=== PATIENT | female | born 1985 | race Caucasian/White ===

== ENCOUNTER 2017-11-04 18:19 | Inpatient (IN) | payer BC ==
[2017-11-04] MEDS ORDERED: Nalbuphine 20 MG/1 ML Amp IVPUSH PRN (21:03)
[2017-11-04] MEDS ORDERED: Sodium Chloride 0.9% 10 ML Syringe FLUSH PRN (21:03)
[2017-11-04] MEDS ORDERED: Oxytocin/Lactated Ringers 10 UNIT/1,000 ML BAG IV SCH ×2 (21:15)
[2017-11-04] MEDS: Misoprostol 25 MCG (1/4 of 100 MCG) Tab VAG SCH (21:49)
[2017-11-04] MEDS ORDERED: Acetaminophen 325 MG Tab PO PRN (21:51)
[2017-11-05] MEDS: Lactated Ringers 1,000 ML IV SCH ×5 (00:06→13:17)
[2017-11-05] MEDS ORDERED: Ondansetron 4 MG/2 ML SDV IVPUSH PRN (00:55)
[2017-11-05] MEDS ORDERED: ePHEDrine 50 MG/ML SDV IVPUSH PRN (00:55)
[2017-11-05] MEDS ORDERED: diphenhydrAMINE 50 MG/ML SDV IVPUSH PRN (00:55)
[2017-11-05] MEDS ORDERED: fentaNYL 100 MCG/2 ML SDV EPIDUR PRN (00:55)
--- NOTE | 2017-11-05 01:25 | PCM.PREANE ---
Preanesthetic Assessment - Anesthesia/Transfusion/Family Hx Anesthesia History: Prior Anesthesia Without Reaction Family History of Anesthesia Reaction: No Transfusion History: No Prior Transfusion(s) - Review of Systems General: No Symptoms Pulmonary: No Symptoms Cardiovascular: No Symptoms Gastrointestinal: No Symptoms Neurological: No Symptoms Other: Reports: None - Physical Assessment Pulse: 55 O2 Sat by Pulse Oximetry: 98 Respiratory Rate: 15 Vital Signs: Last Vital Signs Temp 36.8 C 11/04/17 21:03 Pulse Resp 15 11/04/17 21:03 BP 118/71 11/04/17 21:04 Pulse Ox Height: 1.63 m Weight: 100.244 kg ASA Class: 2 Mental Status: Alert & Oriented x3 Airway Class: Mallampati = 1 Dentition: Reports: Normal Dentition Thyro-Mental Finger Breadths: 3 Mouth Opening Finger Breadths: 3 ROM/Head Extension: Full Lungs: Clear to Auscultation, Normal Respiratory Effort Cardiovascular: Regular Rate, Regular Rhythm - Lab Values: Laboratory Last Values WBC 8.17 K/mm3 (3.98-10.04) 11/04/17 21:20 RBC 4.00 M/mm3 (3.98-5.22) 11/04/17 21:20 Hgb 10.3 gm/L (11.2-15.7) L 11/04/17 21:20 Hct 32.4 % (34.1-44.9) L 11/04/17 21:20 MCV 81.0 fl (79.4-94.8) 11/04/17 21:20 MCH 25.8 pg (25.6-32.2) 11/04/17 21:20 MCHC 31.8 g/dl (32.2-35.5) L 11/04/17 21:20 RDW Std Deviation 43.6 fL (36.4-46.3) 11/04/17 21:20 Plt Count 217 K/mm3 (182-369) 11/04/17 21:20 MPV 10.4 fl (9.4-12.3) 11/04/17 21:20 Neut % (Auto) 73.3 % (34.0-71.1) H 11/04/17 21:20 Lymph % (Auto) 19.3 % (19.3-51.7) 11/04/17 21:20 [place] % (Auto) 5.8 % (4.7-12.5) 11/04/17 21:20 Eos % (Auto) 1.0 (0.7-5.8) 11/04/17 21:20 Baso % (Auto) 0.1 % (0.1-1.2) 11/04/17 21:20 Neut # (Auto) 5.99 K/mm3 (1.56-6.13) 11/04/17 21:20 Lymph # (Auto) 1.58 K/mm3 (1.18-3.74) 11/04/17 21:20 [place] # (Auto) 0.47 K/mm3 (0.24-0.36) H 11/04/17 21:20 Eos # (Auto) 0.08 K/mm3 (0.04-0.36) 11/04/17 21:20 Baso # (Auto) 0.01 K/mm3 (0.01-0.08) 11/04/17 21:20 - Allergies Allergies/Adverse Reactions: Allergies Allergy/AdvReac Type Severity Reaction Status Date / Time No Known Allergies Allergy Verified 11/04/17 21:01 - Acknowledgements Anesthesia Type Planned: Epidural Pt an Appropriate Candidate for the Planned Anesthesia: Yes Alternatives and Risks of Anesthesia Discussed w Pt/Guardian: Yes Pt/Guardian Understands and Agrees with Anesthesia Plan: Yes 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: - SUBSTANCE USE Smoking Status *Q: Never Smoker Second Hand Smoke Exposure: No Recreational Drug Use History: No - HOME MEDS Home Medications: Home Meds Prenat Vit Comb.10/Iron/Fa/Dha [Vitafol-OB + DHA] 1 each PO DAILY 11/04/17 [ History] - CURRENT (IN HOUSE) MEDS Current Meds: Current Medications Acetaminophen (Tylenol) 650 mg PO Q4H PRN PRN Reason: Pain Last Admin: 11/04/17 22:20 Dose: 650 mg Diphenhydramine HCl (Benadryl) 25 mg IVPUSH Q6H PRN PRN Reason: Pruritis Ephedrine Sulfate (Ephedrine Sulfate) 5 mg IVPUSH ASDIRECTED PRN PRN Reason: Hypotension Fentanyl (Sublimaze) 100 mcg EPIDUR ONETIME PRN PRN Reason: Pain Lactated Ringer's (Ringers, Lactated) 1,000 mls @ 100 mls/hr IV ASDIRECTED ARLETTE Last Admin: 11/05/17 00:57 Dose: 100 mls/hr Oxytocin/Lactated Ringer's (Pitocin In Lr 10 Units/1,000 Ml) 10 unit in 1,000 mls @ 12 mls/hr IV TITRATE ARLETTE; Protocol Oxytocin/Lactated Ringer's (Pitocin In Lr 10 Units/1,000 Ml) 10 unit in 1,000 mls @ 500 mls/hr IV .CONTINUOUS ARLETTE; Protocol Misoprostol (Cytotec) 25 mcg VAG Q4HR ARLETTE Last Admin: 11/04/17 21:49 Dose: 25 mcg Nalbuphine HCl (Nubain) 10 mg IVPUSH Q2H PRN PRN Reason: Pain (moderate 4-6) Ondansetron HCl (Zofran) 4 mg IVPUSH Q4H PRN PRN Reason: Nausea/Vomiting Ondansetron HCl (Zofran) 4 mg IVPUSH ONETIME PRN PRN Reason: Nausea/Vomiting Sodium Chloride (Saline Flush) 10 ml FLUSH ASDIRECTED PRN PRN Reason: Keep Vein Open
[2017-11-05] MEDS: Bupivacaine/fentaNYL/NS 100 ML Bag EPIDUR SCH ×3 (01:33→15:50)
--- NOTE | 2017-11-05 03:29 | PCM.CONS ---
H&P History of Present Illness - General Date of Service: 11/05/17 Admit Problem/Dx: Admission Diagnosis/Problem Admission Diagnosis/Problem Source of Information: Patient, Old Records, RN Notes Reviewed History Limitations: Reports: No Limitations - History of Present Illness Initial Comments - Free Text/Narative: This is a 31 yo white female [id number], full term , who was admitted in LD department for elective induction. She carries no past medical hx/o and no significant past surgical history. She takes only vitamins for home medication. Patient is currently resting and comfortable in bed. No acute issues reported and has been asymptomatic since admission. Her initial work up in LD shows, a CBC remarkable for hemoglobin of 10.3, hematocrit of 32.4, MCH of 31.8, neutrophils of 73.8, and monocyte count of 0.47. Her EKG shows sinus bradycardia with ventricular bigeminy. No previous EKG for comparison. According to her nurse, patient so far has gotten epidural injection and cytotec since admission. At the time of my visit, the patient denies any complaints of chest pain, shortness of breath, dyspnea, dizziness, lightheadedness, fainting, heart palpitation, or sensation of skipping heart beat. Hospital Medicine was consulted for evaluation of abnormal rhythm and slow pulse rate. - Related Data Allergies/Adverse Reactions: Allergies Allergy/AdvReac Type Severity Reaction Status Date / Time No Known Allergies Allergy Verified 11/04/17 21:01 Home Medications: Home Meds Prenat Vit Comb.10/Iron/Fa/Dha [Vitafol-OB + DHA] 1 each PO DAILY 11/04/17 [ History] Past Medical History [employer] History: Reports: Social & Family History - Family History Family Medical History: Noncontributory - Tobacco Use Smoking Status *Q: Never Smoker Second Hand Smoke Exposure: No - Caffeine Use Caffeine Use: Reports: None - Recreational Drug Use Recreational Drug Use: No H&P Review of Systems - Review of Systems: Review Of Systems: See Below General: Denies: Fever, Chills, Weakness HEENT: Reports: No Symptoms Pulmonary: Denies: Shortness of Breath, Pleuritic Chest Pain Cardiovascular: Reports: Edema. Denies: Chest Pain, Palpitations, Dyspnea on Exertion, Lightheadedness, Syncope, Blood Pressure Problem Gastrointestinal: Denies: Abdominal Pain, Nausea, Vomiting Genitourinary: Reports: Other (pelvic pressure/tightness) Musculoskeletal: Reports: No Symptoms Skin: Denies: Cyanosis, Mottled, Pallor, Diaphoresis, Bruising Psychiatric: Denies: Depression, Anxiety, Agitation, Hallucinations Neurological: Denies: Confusion, Dizziness, Seizure, Syncope, Weakness Hematologic/Lymphatic: Reports: No Symptoms Immunologic: Reports: No Symptoms Exam - Exam Exam: See Below - Vital Signs Vital Signs: Last Vital Signs Temp 36.8 C 11/04/17 21:03 Pulse 55 L 11/05/17 01:24 Resp 15 11/05/17 01:24 BP 118/71 11/04/17 21:04 Pulse Ox 98 11/05/17 01:24 Weight: 100.244 kg - Exam General: Alert, Oriented, Cooperative, Other (tired and exhausted). No: Mild Distress HEENT: Conjunctiva Clear, Hearing Intact, Mucosa Moist & [place], Nares Patent, Normal Nasal Septum, Pupils Equal, Pupils Reactive Neck: Supple, Trachea Midline, Full Range of Motion. No: JVD Lungs: Clear to Auscultation, Normal Respiratory Effort Cardiovascular: Regular Rhythm, Tachycardia (Mild in the low hundreds), Other ( Pulse is slow ) GI/Abdominal Exam: Normal Bowel Sounds, Soft, Non-Tender, Other (enlarged abdomen due to ). No: Guarding, Rigid, Rebound (Female) Exam: Deferred Rectal (Female) Exam: Deferred Back Exam: Normal Inspection, Decreased Range of Motion Extremities: Normal Inspection, Normal Range of Motion, Non-Tender, Normal Capillary Refill, Pedal Edema Peripheral Pulses: 3+: Posterior Tibial (L), Posterior Tibial (R), Dorsalis Pedis (L), Dorsalis Pedis (R) Skin: Warm, Dry, Intact Neuro Extensive - Mental Status: Oriented x3, Normal Cognition, Memory Intact Neuro Extensive - Motor, Sensory, Reflexes: CN II-XII Intact (very limited due to mobility and restriction with current body habitus but otherwise grossly intact), Abnormal Gait (due to ) Psychiatric: Alert, Normal Affect, Normal Mood - Patient Data Lab Results Last 24 hrs: Laboratory Results - last 24 hr 11/04/17 11/05/17 Range/Units 21:20 02:05 WBC 8.17 (3.98-10.04) K/mm3 RBC 4.00 (3.98-5.22) M/mm3 Hgb 10.3 L (11.2-15.7) gm/L Hct 32.4 L (34.1-44.9) % MCV 81.0 (79.4-94.8) fl MCH 25.8 (25.6-32.2) pg MCHC 31.8 L (32.2-35.5) g/dl RDW Std Deviation 43.6 (36.4-46.3) fL Plt Count 217 (182-369) K/mm3 MPV 10.4 (9.4-12.3) fl Neut % (Auto) 73.3 H (34.0-71.1) % Lymph % (Auto) 19.3 (19.3-51.7) % [place] % (Auto) 5.8 (4.7-12.5) % Eos % (Auto) 1.0 (0.7-5.8) Baso % (Auto) 0.1 (0.1-1.2) % Neut # (Auto) 5.99 (1.56-6.13) K/mm3 Lymph # (Auto) 1.58 (1.18-3.74) K/mm3 [place] # (Auto) 0.47 H (0.24-0.36) K/mm3 Eos # (Auto) 0.08 (0.04-0.36) K/mm3 Baso # (Auto) 0.01 (0.01-0.08) K/mm3 Sodium 136 (136-145) mEq/L Potassium 3.6 (3.5-5.1) mEq/L Chloride 103 (98-107) mEq/L Carbon Dioxide 25 (21-32) mEq/L Anion Gap 11.6 (5-15) BUN 10 (7-18) mg/dL Creatinine 0.6 (0.55-1.02) mg/dL Est Cr Clr Drug Dosing 118.39 mL/min Estimated GFR (MDRD) > 60 (>60) mL/min BUN/Creatinine Ratio 16.7 (14-18) Glucose 91 (74-106) mg/dL Calcium 8.5 (8.5-10.1) mg/dL Magnesium 1.4 L (1.8-2.4) mg/dl Result Diagrams: 11/04/17 21:20 11/05/17 02:05 Consult PN Assessment/Plan POD#: 0 Procedures: Procedures ASSAY THYROID STIM HORMONE (09/15/17) COMPLETE CBC W/AUTO DIFF WBC (09/15/17) GLUCOSE TEST (08/19/17) OB US >/= 14 WKS SNGL FETUS (06/22/17) OB US FOLLOW-UP PER FETUS (07/18/17) ROUTINE VENIPUNCTURE (09/15/17) STREP B DNA AMP PROBE (10/19/17) URINALYSIS AUTO W/O SCOPE (07/20/17) URINALYSIS AUTO W/SCOPE (05/30/17) Problem List Initiated/Reviewed/Updated: Yes My Orders Last 24 Hours: My Active Orders 11/05/17 03:00 T4 FREE [CHEM] Routine TSH [CHEM] Routine 11/05/17 03:15 Magnesium Rep Pharmacy to Dose [Pharmacy to Dose - Magnesium Replacement] 1 dose .XX ASDIRECTED Potassium Rep Pharmacy to Dose [Pharmacy to Dose - Potassium Replacement] 1 dose .XX ASDIRECTED Plan: Assessment: Asymptomatic Bradycardia with Ventricular Bigeminy Full-Term Plan: The patient is a healthy young 31 yo female with no hx/o abnormal cardiac rhythm or congenital heart disease. She has been asymptomatic since admission but with considerably low pulse rate in the 30s-40s captured on LD monitor and with an ekg of sinus bradycardia with ventricular bigeminy. From the hospitalist standpoint, we recommend checking her electrolytes, serial ekgs, thyroid panel, telemetry and immediate delivery of the baby. No cardiac medications needed at this time. Our team, also consulted with [facility] on-call cardiology in [place], Dr. Velasquez for further input. After discussing the case with him, he recommend to closely monitor her electrolytes, ekg after after delivery, telemetry and most importantly to deliver the baby soon. On behalf of the hospitalist team, thank you Dr. Weeks for the opportunity to participate in the management of this patient. We will follow the patient along with you. Requesting Provider: Dr. Weeks Date Consult Requested: 11/05/17 Reason for Consult: Low Pulse Rate Patient History Reviewed: Yes Admission H&P Reviewed: Yes Consult Result/Summary:: Asymptomatic Bradycardia with Ventricular Bigeminy Notified Requestor: Yes Time Spent (in minutes): 75
[2017-11-05] MEDS: Magnesium Sulfate/Water 50 ML IV SCH ×2 (03:58→07:20)
[2017-11-05] MEDS: Potassium Chloride 20 MEQ Tab.ER PO SCH ×2 (04:21→08:42)
[2017-11-05] MEDS ORDERED: Nalbuphine 20 MG/ML 1 ML Syringe IVPUSH PRN (08:09)
[2017-11-05] MEDS ORDERED: Ondansetron 4 MG/2 ML SDV ONE (08:15)
[2017-11-05] MEDS ORDERED: ceFAZolin 1 GM Vial ONE (08:15)
[2017-11-05] MEDS ORDERED: Oxytocin 10 Units/1 ML SDV ONE (08:15)
[2017-11-05] MEDS ORDERED: Lidocaine 2% with EPINEPHrine 1:200,000 20 ML SDV ONE (08:15)
[2017-11-05] MEDS ORDERED: Morphine PF 10 MG/10 ML SDV ONE (08:15)
[2017-11-05] MEDS ORDERED: Sodium Bicarbonate 8.4% 50 MEQ/50 ML SDV ONE (08:15)
[2017-11-05] MEDS ORDERED: Lactated Ringers 2,000 ML ONE (08:15)
[2017-11-05] MEDS ORDERED: Ketorolac 30 MG/ML SDV ONE (08:15)
[2017-11-05] MEDS: Misoprostol 25 MCG (1/4 of 100 MCG) Tab VAG SCH ×2 (08:24→08:34)
[2017-11-05] MEDS: Ondansetron 4 MG/2 ML SDV IVPUSH PRN ×2 (09:44→17:30)
[2017-11-05] MEDS ORDERED: Bupivacaine 0.25% 10 ML SDV ONE (10:00)
--- NOTE | 2017-11-05 10:01 | PCM.SN ---
- Free Text/Narrative Note: Consultation request to hospitalist 31-year-old to 3 YOUSUF 11/11/17. Patient presented to labor and delivery on for induction of labor. During the night she developed irregular pulse ranging from 20-60-70 with irregular heartbeat. I would appreciate your evaluation and recommendations.
--- NOTE | 2017-11-05 10:10 | PCM.LDHP ---
L&D History of Present Illness - General Date of Service: 11/05/17 Admit Problem/Dx: Admission Diagnosis/Problem Admission Diagnosis/Problem Source of Information: Patient History Limitations: Reports: No Limitations - History of Present Illness Introduction:: 31-year-old 0-3 YOUSUF 11/11/2017 estimated gestational age on 11/04/1838 weeks 0 days. Patient presented to labor and delivery for induction of labor. Her group B strep is negative. See labs for her lab work results. Patient during the night developed irregular heartbeat with pulse ranging from 20-60-70 and 1 time 90 with nausea and vomiting. Consult request place for hospitalist. His evaluation revealed suspected ventricular bigeminy. Patient was given magnesium sulfate IV and potassium chloride by mouth her symptoms have improved. She was feeling faint and dizzy at the time of the onset. No past history of same. Plan delivery. During the night when patient was admitted she was cephalic presentation in the yard jacker hours converted to an oblique lie and subsequently now by sonogram on pelvic exam return to cephalic presentation with a hand beside the head. 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: Social & Family History - Family History Family Medical History: Noncontributory - Tobacco Use Smoking Status *Q: Never Smoker Second Hand Smoke Exposure: No - Caffeine Use Caffeine Use: Reports: None - Recreational Drug Use Recreational Drug Use: No H&P Review of Systems - Review of Systems: Review Of Systems: See Below General: Reports: No Symptoms HEENT: Reports: No Symptoms Pulmonary: Reports: No Symptoms Cardiovascular: Reports: Lightheadedness, Other (Dizziness and feeling faint.) Gastrointestinal: Reports: No Symptoms Genitourinary: Reports: No Symptoms Musculoskeletal: Reports: No Symptoms Skin: Reports: No Symptoms Psychiatric: Reports: No Symptoms Neurological: Reports: No Symptoms Hematologic/Lymphatic: Reports: No Symptoms Immunologic: Reports: No Symptoms L&D Exam - Exam Exam: See Below - Vital Signs Vital Signs: Last Vital Signs Temp 98.2 F 11/04/17 21:03 Pulse 55 L 11/05/17 01:24 Resp 15 11/05/17 01:24 BP 118/71 11/04/17 21:04 Pulse Ox 98 11/05/17 01:24 Weight: 221 lb - OB Specific Fundal Height In cm: 39 Contraction Intensity: Mild Movement: Active Heart Tones: Present Heart Tones per Min: 135 Heart Rate (FHR) Variability: Moderate (6-25 bmp) Presentation: Vertex - Mc Score Mc Score Cervix Position: Posterior Mc Score Consistency: Soft Mc Score Effacement: 51-70% Mc Score Dilation: 1-2 cm Mc Score 's Station: -3 Mc Score Total: 5 - Exam General: Alert, Oriented HEENT: PERRLA, Conjunctiva Clear, EACs Clear, EOMI, Hearing Intact, Mucosa Moist & [place], Nares Patent, Normal Nasal Septum, Posterior Pharynx Clear, TMs Clear Neck: Supple, Trachea Midline Lungs: Clear to Auscultation, Normal Respiratory Effort Cardiovascular: Irregular Rhythm, Bradycardia GI/Abdominal Exam: Normal Bowel Sounds, Soft, Non-Tender Genitourinary: Normal external exam, Normal bimanual exam, Normal speculum exam Extremities: Normal Inspection, Normal Range of Motion, Non-Tender, No Pedal Edema, Normal Capillary Refill Skin: Warm, Dry, Intact Neurological: Cranial Nerves Intact, Reflexes Equal Bilateral Psychiatric: Alert, Normal Affect, Normal Mood - Patient Data Lab Results Last 24 hrs: Laboratory Results - last 24 hr 11/04/17 11/05/17 11/05/17 Range/Units 21:20 02:05 02:05 WBC 8.17 (3.98-10.04) K/mm3 RBC 4.00 (3.98-5.22) M/mm3 Hgb 10.3 L (11.2-15.7) gm/L Hct 32.4 L (34.1-44.9) % MCV 81.0 (79.4-94.8) fl MCH 25.8 (25.6-32.2) pg MCHC 31.8 L (32.2-35.5) g/dl RDW Std Deviation 43.6 (36.4-46.3) fL Plt Count 217 (182-369) K/mm3 MPV 10.4 (9.4-12.3) fl Neut % (Auto) 73.3 H (34.0-71.1) % Lymph % (Auto) 19.3 (19.3-51.7) % [place] % (Auto) 5.8 (4.7-12.5) % Eos % (Auto) 1.0 (0.7-5.8) Baso % (Auto) 0.1 (0.1-1.2) % Neut # (Auto) 5.99 (1.56-6.13) K/mm3 Lymph # (Auto) 1.58 (1.18-3.74) K/mm3 [place] # (Auto) 0.47 H (0.24-0.36) K/mm3 Eos # (Auto) 0.08 (0.04-0.36) K/mm3 Baso # (Auto) 0.01 (0.01-0.08) K/mm3 Sodium 136 (136-145) mEq/L Potassium 3.6 (3.5-5.1) mEq/L Chloride 103 (98-107) mEq/L Carbon Dioxide 25 (21-32) mEq/L Anion Gap 11.6 (5-15) BUN 10 (7-18) mg/dL Creatinine 0.6 (0.55-1.02) mg/dL Est Cr Clr Drug Dosing 118.39 mL/min Estimated GFR (MDRD) > 60 (>60) mL/min BUN/Creatinine Ratio 16.7 (14-18) Glucose 91 (74-106) mg/dL Calcium 8.5 (8.5-10.1) mg/dL Magnesium 1.4 L (1.8-2.4) mg/dl Free T4 0.98 (0.76-1.46) ng/dL TSH 3rd Generation 2.778 (0.358-3.74) uIU/mL Result Diagrams: 11/04/17 21:20 11/05/17 02:05 - Problem List (1) 40 weeks gestation of SNOMED Code(s): 64270894 ICD Code: Z3A.40 - 40 WEEKS GESTATION OF Status: Acute Current Visit: Yes (2) Ventricular bigeminy SNOMED Code(s): 42490981 ICD Code: I49.9 - CARDIAC ARRHYTHMIA, UNSPECIFIED Status: Acute Current Visit: Yes Problem List Initiated/Reviewed/Updated: No Orders Last 24hrs: Active Orders 24 hr Category Date Time Status Patient Status [ADT] Routine ADT 11/04/17 21:03 Active Activity as Tolerated [RC] PFP Care 11/04/17 21:03 Active Cardiac Monitoring [RC] . DIRECTED Care 11/05/17 01:54 Active Communication Order [RC] ASDIRECTED Care 11/04/17 21:03 Active Communication Order [RC] ROUTINE Care 11/05/17 05:08 Active EKG 12 Lead [EKG Documentation Completion] [RC] ROUTINE Care 11/05/17 08:00 Active EKG Documentation Completion [RC] ASDIRECTED Care 11/05/17 01:41 Active Heart Tones [RC] ASDIRECTED Care 11/04/17 21:04 Active Notify Provider Consults [RC] ASDIRECTED Care 11/05/17 02:11 Active Notify Provider [RC] ASDIRECTED Care 11/05/17 00:54 Active Notify Provider [RC] PFP Care 11/04/17 21:03 Active Notify Provider [RC] PRN Care 11/04/17 21:03 Active Peripheral IV Care [RC] . DIRECTED Care 11/04/17 21:04 Active Pump Management, Intrathecal [RC] ASDIRECTED Care 11/04/17 21:05 Active Urinary Catheter Assessment [RC] ASDIRECTED Care 11/04/17 21:03 Active Vital Signs [RC] PER UNIT ROUTINE Care 11/04/17 21:03 Active Consult to Physician [CONS] Stat Cons 11/05/17 02:06 Active Acetaminophen [Tylenol] Med 11/04/17 21:51 Active 650 mg PO Q4H PRN Bupivacaine/fentaNYL/NS [fentaNYL/Bupivacaine/NS 2 MCG- Med 11/05/17 01:30 Active 0.125% 100 ML] 100 ml EPIDUR ASDIRECTED Lactated Ringers [Ringers, Lactated] 1,000 ml Med 11/04/17 21:15 Active IV ASDIRECTED Magnesium Rep Pharmacy to Dose [Pharmacy to Dose - Med 11/05/17 03:15 Active Magnesium Replacement] 0 dose .XX ASDIRECTED PRN Misoprostol [Cytotec] Med 11/04/17 21:11 Active 25 mcg VAG Q4HR Nalbuphine [Nubain] Med 11/05/17 08:09 Active 10 mg IVPUSH Q2H PRN Ondansetron [Zofran] Med 11/05/17 00:55 Active 4 mg IVPUSH ONETIME PRN Ondansetron [Zofran] Med 11/04/17 21:03 Active 4 mg IVPUSH Q4H PRN Oxytocin/Lactated Ringers [Pitocin in LR 10 Units/1,000 Med 11/04/17 21:15 Active ML] 10 unit in 1,000 ml IV .CONTINUOUS Oxytocin/Lactated Ringers [Pitocin in LR 10 Units/1,000 Med 11/04/17 21:15 Active ML] 10 unit in 1,000 ml IV TITRATE Potassium Rep Pharmacy to Dose [Pharmacy to Dose - Med 11/05/17 03:15 Active Potassium Replacement] 0 dose .XX ASDIRECTED PRN Sodium Chloride 0.9% [Saline Flush] Med 11/04/17 21:03 Active 10 ml FLUSH ASDIRECTED PRN diphenhydrAMINE [Benadryl] Med 11/05/17 00:55 Active 25 mg IVPUSH Q6H PRN ePHEDrine [ePHEDrine Sulfate] Med 11/05/17 00:55 Active 5 mg IVPUSH ASDIRECTED PRN fentaNYL [Sublimaze] Med 11/05/17 00:55 Active 100 mcg EPIDUR ONETIME PRN Electronic Heart Tones Ext w TOCO [WOMSER] Oth 11/04/17 21:03 Ordered Routine Electronic Heart Tones Internal [WOMSER] Per Unit Ot 11/04/17 21:03 Ordered Routine Peripheral IV Insertion Adult [OM.PC] Routine Oth 11/04/17 21:03 Ordered Resuscitation Status Routine Resus Stat 11/04/17 21:03 Ordered EKG 12 Lead [EK] Routine Ther 11/05/17 01:40 Ordered Medication Orders Acetaminophen (Tylenol) 650 mg PO Q4H PRN PRN Reason: Pain Last Admin: 11/04/17 22:20 Dose: 650 mg Diphenhydramine HCl (Benadryl) 25 mg IVPUSH Q6H PRN PRN Reason: Pruritis Ephedrine Sulfate (Ephedrine Sulfate) 5 mg IVPUSH ASDIRECTED PRN PRN Reason: Hypotension Fentanyl (Sublimaze) 100 mcg EPIDUR ONETIME PRN PRN Reason: Pain Last Admin: 11/05/17 01:25 Dose: 100 mcg Fentanyl/Bupivacaine HCl (Fentanyl/Bupivacaine/Ns 2 Mcg-0.125% 100 Ml) 100 ml EPIDUR ASDIRECTED ARLETTE Last Admin: 11/05/17 09:44 Dose: 100 ml Admin: 11/05/17 01:33 Dose: 100 ml Lactated Ringer's (Ringers, Lactated) 1,000 mls @ 100 mls/hr IV ASDIRECTED ARLETTE Last Admin: 11/05/17 04:58 Dose: 100 mls/hr Infusion: 11/05/17 04:58 Dose: 100 mls/hr Admin: 11/05/17 03:53 Dose: 100 mls/hr Infusion: 11/05/17 03:53 Dose: 100 mls/hr Admin: 11/05/17 00:57 Dose: 100 mls/hr Infusion: 11/05/17 00:57 Dose: 100 mls/hr Admin: 11/05/17 00:06 Dose: 100 mls/hr Oxytocin/Lactated Ringer's (Pitocin In Lr 10 Units/1,000 Ml) 10 unit in 1,000 mls @ 12 mls/hr IV TITRATE ARLETTE; Protocol Last Titration: 11/05/17 09:43 Dose: 4 munits/min, 24 mls/hr Titration: 11/05/17 08:27 Dose: 2 munits/min, 12 mls/hr Titration: 11/05/17 07:27 Dose: 0 munits/min, 0 mls/hr Admin: 11/05/17 04:44 Dose: 2 munits/min, 12 mls/hr Oxytocin/Lactated Ringer's (Pitocin In Lr 10 Units/1,000 Ml) 10 unit in 1,000 mls @ 500 mls/hr IV .CONTINUOUS ARLETTE; Protocol Magnesium Sulfate (Pharmacy To Dose - Magnesium Replacement) 0 dose .XX ASDIRECTED PRN PRN Reason: RX TO WATCH MAG LEVELS Misoprostol (Cytotec) 25 mcg VAG Q4HR ARLETTE Last Admin: 11/05/17 08:34 Dose: Not Given Admin: 11/05/17 08:24 Dose: Not Given Admin: 11/05/17 08:24 Dose: Not Given Admin: 11/04/17 21:49 Dose: 25 mcg Nalbuphine HCl (Nubain) 10 mg IVPUSH Q2H PRN PRN Reason: Pain (moderate 4-6) Ondansetron HCl (Zofran) 4 mg IVPUSH Q4H PRN PRN Reason: Nausea/Vomiting Last Admin: 11/05/17 09:44 Dose: 4 mg Ondansetron HCl (Zofran) 4 mg IVPUSH ONETIME PRN PRN Reason: Nausea/Vomiting Potassium Chloride (Pharmacy To Dose - Potassium Replacement) 0 dose .XX ASDIRECTED PRN PRN Reason: RX TO WATCH K LEVELS Sodium Chloride (Saline Flush) 10 ml FLUSH ASDIRECTED PRN PRN Reason: Keep Vein Open Assessment/Plan Comment:: Exam at 0 8:30 are confirmed cephalic by ultrasound at bedside and pelvic examination. Cervix 3 cm dilated 70% effaced posterior soft -3 vertex presentation. Restart Pitocin.
--- NOTE | 2017-11-05 11:05 | PCM.SN ---
- Free Text/Narrative Note: Pitocin has been restarted. Cervix unchanged. Still vertex. Cat IFHR
--- NOTE | 2017-11-05 17:19 | PCM.SN ---
- Free Text/Narrative Note: 11/05/2017 1715 hrs Cervix 5 cm, 80%, soft, mid-position, vertex-1. Cat I FHR. Good relief from epidural.
--- NOTE | 2017-11-05 17:45 | PCM.SN ---
- Free Text/Narrative Note: Cervix 6 cm,100 %, soft, anterior, vertex-1 cat I FHR.
[2017-11-05] MEDS ORDERED: Misoprostol 200 MCG Tab ONE (18:32)
--- NOTE | 2017-11-05 18:44 | PCM.DEL ---
L & D Note - General Info Date of Service: 11/05/17 Mother's Due Date: 11/11/17 - Delivery Note Labor: Spontaneous, Augmented by ARM, Augmented by Oxytocin Delivery Outcome: Livebirth (Male liveborn Tuesday11/05/17 at 1827 hrs. weight pending Apgars 8/9 TARIK no nuchal cord) Infant Delivery Method: Spontaneous Vaginal Delivery-Single Infant Delivery Mode: Spontaneous Presentation: Left Occiput Anterior (TARIK) Nuchal Cord: None Prep: Povidone-Iodine (Betadine Anesthesia Type: Epidural Episiotomy Type: None Laceration: 1st Degree (Midline first-degree sutured with one [id number] suture 3-0 Monocryl) Placenta: Intact, Spontaneous (Delivered at 1830 hrs. on 11/05/17Tuesday intact examined discarded) Cord: 3 Vessels Estimated Blood Loss: 750 (Cytotec 200 g 2 1 each cheek) Resuscitation Needed: No [place]: Suctioned, Bulb Syringe, Stimulated, Warmed, [place] Used, Warmer Used Provider: Rohith Weeks Score 1 min: 8 Score 5 min: 9 - General Info Date of Service: 11/05/17 Functional Status: Reports: Pain Controlled - Review of Systems General: Reports: No Symptoms HEENT: Reports: No Symptoms Pulmonary: Reports: No Symptoms Cardiovascular: Reports: No Symptoms Gastrointestinal: Reports: No Symptoms Genitourinary: Reports: No Symptoms Musculoskeletal: Reports: No Symptoms Skin: Reports: No Symptoms Neurological: Reports: No Symptoms Psychiatric: Reports: No Symptoms - Patient Data Vitals - Most Recent: Last Vital Signs Temp 98.2 F 11/04/17 21:03 Pulse 55 L 11/05/17 01:24 Resp 15 11/05/17 01:24 BP 118/71 11/04/17 21:04 Pulse Ox 98 11/05/17 01:24 Weight - Most Recent: 221 lb I&O - Last 24 Hours: Intake & Output 11/05/17 11/05/17 11/05/17 06:59 14:59 22:59 Intake Total 4100 Balance 4100 Lab Results Last 24 Hours: Laboratory Results - last 24 hr 11/04/17 11/05/17 11/05/17 Range/Units 21:20 02:05 02:05 WBC 8.17 (3.98-10.04) K/mm3 RBC 4.00 (3.98-5.22) M/mm3 Hgb 10.3 L (11.2-15.7) gm/L Hct 32.4 L (34.1-44.9) % MCV 81.0 (79.4-94.8) fl MCH 25.8 (25.6-32.2) pg MCHC 31.8 L (32.2-35.5) g/dl RDW Std Deviation 43.6 (36.4-46.3) fL Plt Count 217 (182-369) K/mm3 MPV 10.4 (9.4-12.3) fl Neut % (Auto) 73.3 H (34.0-71.1) % Lymph % (Auto) 19.3 (19.3-51.7) % [place] % (Auto) 5.8 (4.7-12.5) % Eos % (Auto) 1.0 (0.7-5.8) Baso % (Auto) 0.1 (0.1-1.2) % Neut # (Auto) 5.99 (1.56-6.13) K/mm3 Lymph # (Auto) 1.58 (1.18-3.74) K/mm3 [place] # (Auto) 0.47 H (0.24-0.36) K/mm3 Eos # (Auto) 0.08 (0.04-0.36) K/mm3 Baso # (Auto) 0.01 (0.01-0.08) K/mm3 Sodium 136 (136-145) mEq/L Potassium 3.6 (3.5-5.1) mEq/L Chloride 103 (98-107) mEq/L Carbon Dioxide 25 (21-32) mEq/L Anion Gap 11.6 (5-15) BUN 10 (7-18) mg/dL Creatinine 0.6 (0.55-1.02) mg/dL Est Cr Clr Drug Dosing 118.39 mL/min Estimated GFR (MDRD) > 60 (>60) mL/min BUN/Creatinine Ratio 16.7 (14-18) Glucose 91 (74-106) mg/dL Calcium 8.5 (8.5-10.1) mg/dL Magnesium 1.4 L (1.8-2.4) mg/dl Free T4 0.98 (0.76-1.46) ng/dL TSH 3rd Generation 2.778 (0.358-3.74) uIU/mL Med Orders - Current: Current Medications Acetaminophen (Tylenol) 650 mg PO Q4H PRN PRN Reason: Pain Last Admin: 11/04/17 22:20 Dose: 650 mg Diphenhydramine HCl (Benadryl) 25 mg IVPUSH Q6H PRN PRN Reason: Pruritis Ephedrine Sulfate (Ephedrine Sulfate) 5 mg IVPUSH ASDIRECTED PRN PRN Reason: Hypotension Fentanyl (Sublimaze) 100 mcg EPIDUR ONETIME PRN PRN Reason: Pain Last Admin: 11/05/17 01:25 Dose: 100 mcg Fentanyl/Bupivacaine HCl (Fentanyl/Bupivacaine/Ns 2 Mcg-0.125% 100 Ml) 100 ml EPIDUR ASDIRECTED ARLETTE Last Admin: 11/05/17 15:50 Dose: 100 ml Lactated Ringer's (Ringers, Lactated) 1,000 mls @ 100 mls/hr IV ASDIRECTED ARLETTE Last Admin: 11/05/17 13:17 Dose: 100 mls/hr Oxytocin/Lactated Ringer's (Pitocin In Lr 10 Units/1,000 Ml) 10 unit in 1,000 mls @ 12 mls/hr IV TITRATE ARLETTE; Protocol Last Titration: 11/05/17 14:05 Dose: 8 munits/min, 48 mls/hr Oxytocin/Lactated Ringer's (Pitocin In Lr 10 Units/1,000 Ml) 10 unit in 1,000 mls @ 500 mls/hr IV .CONTINUOUS ARLETTE; Protocol Magnesium Sulfate (Pharmacy To Dose - Magnesium Replacement) 0 dose .XX ASDIRECTED PRN PRN Reason: RX TO WATCH MAG LEVELS Nalbuphine HCl (Nubain) 10 mg IVPUSH Q2H PRN PRN Reason: Pain (moderate 4-6) Ondansetron HCl (Zofran) 4 mg IVPUSH Q4H PRN PRN Reason: Nausea/Vomiting Last Admin: 11/05/17 17:30 Dose: 4 mg Ondansetron HCl (Zofran) 4 mg IVPUSH ONETIME PRN PRN Reason: Nausea/Vomiting Potassium Chloride (Pharmacy To Dose - Potassium Replacement) 0 dose .XX ASDIRECTED PRN PRN Reason: RX TO WATCH K LEVELS Sodium Chloride (Saline Flush) 10 ml FLUSH ASDIRECTED PRN PRN Reason: Keep Vein Open Discontinued Medications Cefazolin Sodium (Ancef) Confirm Administered Dose 2 gm .ROUTE .STK-MED ONE Stop: 11/05/17 08:16 Magnesium Sulfate (Magnesium Sulfate 2 Gm In Water 50 Ml) 50 mls @ 25 mls/hr IV Q2H [facility] Stop: 11/05/17 07:29 Last Admin: 11/05/17 07:20 Dose: 25 mls/hr Lactated Ringer's (Ringers, Lactated) Confirm Administered Dose 2,000 mls @ as directed .ROUTE .STK-MED ONE Stop: 11/05/17 08:16 Ketorolac Tromethamine (Toradol) Confirm Administered Dose 30 mg .ROUTE .STK- MED ONE Stop: 11/05/17 08:16 Lidocaine/Epinephrine (Xylocaine-Mpf 2%-Epi 1:200,000) Confirm Administered Dose 20 ml .ROUTE .STK-MED ONE Stop: 11/05/17 08:16 Misoprostol (Cytotec) 25 mcg VAG Q4HR [facility] Last Admin: 11/05/17 08:34 Dose: Not Given Misoprostol (Cytotec) Confirm Administered Dose 400 mcg .ROUTE .STK-MED ONE Stop: 11/05/17 18:33 Morphine Sulfate (Duramorph Pf) Confirm Administered Dose 10 mg .ROUTE .STK-MED ONE Stop: 11/05/17 08:16 Nalbuphine HCl (Nubain) 10 mg IVPUSH Q2H PRN PRN Reason: Pain (moderate 4-6) Ondansetron HCl (Zofran) Confirm Administered Dose 4 mg .ROUTE .STK-MED ONE Stop: 11/05/17 08:16 Oxytocin (Pitocin) Confirm Administered Dose 20 unit .ROUTE .STK-MED ONE Stop: 11/05/17 08:16 Potassium Chloride (Klor-Con M20) 40 meq PO Q4H [facility] Stop: 11/05/17 08:01 Last Admin: 11/05/17 08:42 Dose: 40 meq Sodium Bicarbonate (Sodium Bicarbonate 8.4%) Confirm Administered Dose 50 meq .ROUTE .STK-MED ONE Stop: 11/05/17 08:16 - Exam (Female) Exam: Other (750 mL estimated blood loss at delivery some uterine atony initially resolved with massage, Pitocin, Cytotec 200 g 2.1 in each cheek) - Problem List & Annotations (1) 40 weeks gestation of SNOMED Code(s): 41191920 Code(s): Z3A.40 - 40 WEEKS GESTATION OF Status: Acute Current Visit: Yes (2) Ventricular bigeminy SNOMED Code(s): 04451255 Code(s): I49.9 - CARDIAC ARRHYTHMIA, UNSPECIFIED Status: Acute Current Visit: Yes (3) First degree laceration of perineum, delivered, current hospitalization SNOMED Code(s): 825281150 Code(s): O70.0 - FIRST DEGREE PERINEAL LACERATION DURING DELIVERY Status: Acute Current Visit: Yes (4) Uterine atony, , current hospitalization SNOMED Code(s): 7743346 Code(s): O75.89 - OTHER SPECIFIED COMPLICATIONS OF LABOR AND DELIVERY Status: Acute Current Visit: Yes - Problem List Review Problem List Initiated/Reviewed/Updated: No - My Orders Last 24 Hours: My Active Orders 11/04/17 21:03 Patient Status [ADT] Routine Activity as Tolerated [RC] PFP Communication Order [RC] ASDIRECTED Notify Provider [RC] PFP Notify Provider [RC] PRN Urinary Catheter Assessment [RC] ASDIRECTED Vital Signs [RC] PER UNIT ROUTINE Ondansetron [Zofran] 4 mg IVPUSH Q4H PRN Sodium Chloride 0.9% [Saline Flush] 10 ml FLUSH ASDIRECTED PRN Electronic Heart Tones Ext w TOCO [WOMSER] Routine Electronic Heart Tones Internal [WOMSER] Per Unit Routine Peripheral IV Insertion Adult [OM.PC] Routine Resuscitation Status Routine 11/04/17 21:04 Heart Tones [RC] ASDIRECTED Peripheral IV Care [RC] . DIRECTED 11/04/17 21:05 Pump Management, Intrathecal [RC] ASDIRECTED 11/04/17 21:15 Lactated Ringers [Ringers, Lactated] 1,000 ml IV ASDIRECTED Oxytocin/Lactated Ringers [Pitocin in LR 10 Units/1,000 ML] 10 unit in 1,000 ml IV .CONTINUOUS Oxytocin/Lactated Ringers [Pitocin in LR 10 Units/1,000 ML] 10 unit in 1,000 ml IV TITRATE 11/04/17 21:51 Acetaminophen [Tylenol] 650 mg PO Q4H PRN 11/05/17 01:40 EKG 12 Lead [EK] Routine 11/05/17 01:41 EKG Documentation Completion [RC] ASDIRECTED 11/05/17 01:54 Cardiac Monitoring [RC] . DIRECTED 11/05/17 02:06 Consult to Physician [CONS] Stat 11/05/17 02:11 Notify Provider Consults [RC] ASDIRECTED 11/05/17 08:09 Nalbuphine [Nubain] 10 mg IVPUSH Q2H PRN - Plan Plan:: Exam at 0 8:30 are confirmed cephalic by ultrasound at bedside and pelvic examination. Cervix 3 cm dilated 70% effaced posterior soft -3 vertex presentation. Restart Pitocin.
[2017-11-05] MEDS ORDERED: Carboprost Tromethamine 250 MCG/1 ML Amp ONE (19:12)
[2017-11-05] MEDS ORDERED: Atropine/Diphenoxylate 0.025-2.5 MG Tab PO ONE (19:13)
[2017-11-05] MEDS ORDERED: Witch Hazel Medicated Pads 100/Jar TOP PRN (19:14)
[2017-11-05] MEDS ORDERED: Benzocaine/Menthol 20%-0.5% Spray 56 GM Canister TOP PRN (19:14)
[2017-11-05] MEDS ORDERED: Lanolin 100% Cream 7 GM Tube TOP PRN (19:14)
[2017-11-05] MEDS ORDERED: Docusate Sodium 100 MG Cap PO PRN (19:14)
[2017-11-05] MEDS ORDERED: Misoprostol 200 MCG Tab PO ONE (19:14)
[2017-11-05] MEDS ORDERED: Acetaminophen 325 MG Tab PO PRN (19:14)
[2017-11-05] MEDS: Ibuprofen 600 MG Tab PO PRN (21:50)
[2017-11-06] MEDS: Ibuprofen 600 MG Tab PO PRN ×3 (04:29→20:18)
[2017-11-06] MEDS: Prenatal Multivitamin with Calcium/Folic Acid/Iron Tab PO SCH (09:07)
[2017-11-06] MEDS ORDERED: Magnesium Sulfate/Water 4 GM in Premix Bag 1 BAG IV ONE (09:34)
[2017-11-06] MEDS ORDERED: Potassium Chloride 20 MEQ Tab.ER PO ONE (09:35)
--- NOTE | 2017-11-06 09:38 | PCM.CONSN ---
- General Info Date of Service: 11/06/17 Admission Dx/Problem (Free Text): Hospitalist overview: This is a 31 yo white female F2N3-5-6-3, full term , who was admitted in LD department for elective induction. She carries no past medical hx/o and no significant past surgical history. She takes only vitamins for home medication. Patient is currently resting and comfortable in bed. No acute issues reported and has been asymptomatic since admission. Her initial work up in LD shows, a CBC remarkable for hemoglobin of 10.3, hematocrit of 32.4, MCH of 31.8, neutrophils of 73.8, and monocyte count of 0.47. Her EKG shows sinus bradycardia with ventricular bigeminy. No previous EKG for comparison. According to her nurse, patient so far has gotten epidural injection and cytotec since admission. At the time of my visit, the patient denies any complaints of chest pain, shortness of breath, dyspnea, dizziness, lightheadedness, fainting, heart palpitation, or sensation of skipping heart beat. Hospital Medicine was consulted for evaluation of abnormal rhythm and slow pulse rate. Functional Status: Reports: Tolerating Diet, Ambulating, Urinating - Review of Systems General: Reports: No Symptoms HEENT: Reports: No Symptoms Pulmonary: Reports: No Symptoms Cardiovascular: Reports: No Symptoms Gastrointestinal: Reports: No Symptoms Genitourinary: Reports: No Symptoms Musculoskeletal: Reports: No Symptoms Skin: Reports: No Symptoms Neurological: Reports: No Symptoms Psychiatric: Reports: No Symptoms - Patient Data Vitals - Most Recent: Last Vital Signs Temp 36.4 C 11/06/17 03:00 Pulse 80 11/06/17 03:00 Resp 17 11/06/17 03:00 BP 118/80 11/06/17 03:00 Pulse Ox 97 11/06/17 03:00 Weight - Most Recent: 100.244 kg I&O - Last 24 Hours: Intake & Output 11/05/17 11/06/17 11/06/17 22:59 06:59 14:59 Intake Total 5100 1050 Output Total 1900 Balance 3200 1050 Lab Results Last 24 Hours: Laboratory Results - last 24 hr 11/06/17 11/06/17 Range/Units 06:16 06:16 WBC 7.38 (3.98-10.04) K/mm3 RBC 3.61 L (3.98-5.22) M/mm3 Hgb 9.2 L (11.2-15.7) gm/L Hct 29.6 L (34.1-44.9) % MCV 82.0 (79.4-94.8) fl MCH 25.5 L (25.6-32.2) pg MCHC 31.1 L (32.2-35.5) g/dl RDW Std Deviation 44.0 (36.4-46.3) fL Plt Count 171 L (182-369) K/mm3 MPV 10.9 (9.4-12.3) fl Neut % (Auto) 79.2 H (34.0-71.1) % Lymph % (Auto) 13.8 L (19.3-51.7) % [place] % (Auto) 5.8 (4.7-12.5) % Eos % (Auto) 0.8 (0.7-5.8) Baso % (Auto) 0.1 (0.1-1.2) % Neut # (Auto) 5.84 (1.56-6.13) K/mm3 Lymph # (Auto) 1.02 L (1.18-3.74) K/mm3 [place] # (Auto) 0.43 H (0.24-0.36) K/mm3 Eos # (Auto) 0.06 (0.04-0.36) K/mm3 Baso # (Auto) 0.01 (0.01-0.08) K/mm3 Sodium 138 (136-145) mEq/L Potassium 3.5 (3.5-5.1) mEq/L Chloride 106 (98-107) mEq/L Carbon Dioxide 22 (21-32) mEq/L Anion Gap 13.5 (5-15) BUN 8 (7-18) mg/dL Creatinine 0.6 (0.55-1.02) mg/dL Est Cr Clr Drug Dosing 118.39 mL/min Estimated GFR (MDRD) > 60 (>60) mL/min BUN/Creatinine Ratio 13.3 L (14-18) Glucose 113 H (74-106) mg/dL Calcium 8.3 L (8.5-10.1) mg/dL Magnesium 1.6 L (1.8-2.4) mg/dl Total Bilirubin 0.3 (0.2-1.0) mg/dL AST 18 (15-37) U/L ALT 16 (14-59) U/L Alkaline Phosphatase 121 H (46-116) U/L Total Protein 4.9 L (6.4-8.2) g/dl Albumin 1.8 L (3.4-5.0) g/dl Globulin 3.1 gm/dL Albumin/Globulin Ratio 0.6 L (1-2) Med Orders - Current: Current Medications Acetaminophen (Tylenol) 650 mg PO Q4H PRN PRN Reason: mild pain or fever Last Admin: 11/05/17 23:47 Dose: 650 mg Benzocaine/Menthol (Dermoplast Pain Relief [place]) 0 gm TOP ASDIRECTED PRN PRN Reason: Perineal Comfort Measure Last Admin: 11/05/17 20:00 Dose: 1 can Docusate Sodium (Colace) 100 mg PO BID PRN PRN Reason: Constipation Emollient Ointment (Lansinoh Hpa) 0 gm TOP ASDIRECTED PRN PRN Reason: Sore Nipples Magnesium Sulfate 4 gm/ Premix 100 mls @ 300 mls/hr IV ONETIME ONE Stop: 11/06/17 09:35 Ibuprofen (Motrin) 600 mg PO Q4H PRN PRN Reason: Mild pain or fever Last Admin: 11/06/17 09:07 Dose: 600 mg Potassium Chloride (Klor-Con M20) 40 meq PO ONETIME ONE Stop: 11/06/17 09:36 Prenat Multivit/[place]/Iron/Folic Ac ( Plus Iron) 1 each PO DAILY ARLETTE Last Admin: 11/06/17 09:07 Dose: 1 each [place] (Tucks) 1 pad TOP ASDIRECTED PRN PRN Reason: Hemorrhoid pain Last Admin: 11/05/17 20:01 Dose: 1 applicful Discontinued Medications Acetaminophen (Tylenol) 650 mg PO Q4H PRN PRN Reason: Pain Last Admin: 11/04/17 22:20 Dose: 650 mg Carboprost Tromethamine (Hemabate Ds) Confirm Administered Dose 250 mcg .ROUTE .STK-MED ONE Stop: 11/05/17 19:13 Last Admin: 11/05/17 22:58 Dose: Not Given Cefazolin Sodium (Ancef) Confirm Administered Dose 2 gm .ROUTE .STK-MED ONE Stop: 11/05/17 08:16 Diphenhydramine HCl (Benadryl) 25 mg IVPUSH Q6H PRN PRN Reason: Pruritis Diphenoxylate HCl/Atropine (Lomotil 0.025-2.5 Mg) 2 tab PO ONETIME ONE Stop: 11/05/17 19:14 Last Admin: 11/05/17 22:58 Dose: Not Given Ephedrine Sulfate (Ephedrine Sulfate) 5 mg IVPUSH ASDIRECTED PRN PRN Reason: Hypotension Fentanyl (Sublimaze) 100 mcg EPIDUR ONETIME PRN PRN Reason: Pain Last Admin: 11/05/17 01:25 Dose: 100 mcg Fentanyl/Bupivacaine HCl (Fentanyl/Bupivacaine/Ns 2 Mcg-0.125% 100 Ml) 100 ml EPIDUR ASDIRECTED ARLETTE Last Admin: 11/05/17 15:50 Dose: 100 ml Lactated Ringer's (Ringers, Lactated) 1,000 mls @ 100 mls/hr IV ASDIRECTED ARLETTE Last Admin: 11/05/17 13:17 Dose: 100 mls/hr Oxytocin/Lactated Ringer's (Pitocin In Lr 10 Units/1,000 Ml) 10 unit in 1,000 mls @ 12 mls/hr IV TITRATE ARLETTE; Protocol Last Titration: 11/05/17 14:05 Dose: 8 munits/min, 48 mls/hr Oxytocin/Lactated Ringer's (Pitocin In Lr 10 Units/1,000 Ml) 10 unit in 1,000 mls @ 500 mls/hr IV .CONTINUOUS ARLETTE; Protocol Last Admin: 11/05/17 19:04 Dose: 500 mls/hr Magnesium Sulfate (Magnesium Sulfate 2 Gm In Water 50 Ml) 50 mls @ 25 mls/hr IV Q2H ARLETTE Stop: 11/05/17 07:29 Last Admin: 11/05/17 07:20 Dose: 25 mls/hr Lactated Ringer's (Ringers, Lactated) Confirm Administered Dose 2,000 mls @ as directed .ROUTE .STK-MED ONE Stop: 11/05/17 08:16 Ketorolac Tromethamine (Toradol) Confirm Administered Dose 30 mg .ROUTE .STK- MED ONE Stop: 11/05/17 08:16 Lidocaine/Epinephrine (Xylocaine-Mpf 2%-Epi 1:200,000) Confirm Administered Dose 20 ml .ROUTE .STK-MED ONE Stop: 11/05/17 08:16 Magnesium Sulfate (Pharmacy To Dose - Magnesium Replacement) 0 dose .XX ASDIRECTED PRN PRN Reason: RX TO WATCH MAG LEVELS Misoprostol (Cytotec) 25 mcg VAG Q4HR [facility] Last Admin: 11/05/17 08:34 Dose: Not Given Misoprostol (Cytotec) Confirm Administered Dose 400 mcg .ROUTE .STK-MED ONE Stop: 11/05/17 18:33 Last Admin: 11/05/17 19:17 Dose: Not Given Misoprostol (Cytotec) 400 mcg PO ONETIME ONE Stop: 11/05/17 19:15 Last Admin: 11/05/17 18:40 Dose: 400 mcg Morphine Sulfate (Duramorph Pf) Confirm Administered Dose 10 mg .ROUTE .STK-MED ONE Stop: 11/05/17 08:16 Nalbuphine HCl (Nubain) 10 mg IVPUSH Q2H PRN PRN Reason: Pain (moderate 4-6) Nalbuphine HCl (Nubain) 10 mg IVPUSH Q2H PRN PRN Reason: Pain (moderate 4-6) Ondansetron HCl (Zofran) 4 mg IVPUSH Q4H PRN PRN Reason: Nausea/Vomiting Last Admin: 11/05/17 17:30 Dose: 4 mg Ondansetron HCl (Zofran) 4 mg IVPUSH ONETIME PRN PRN Reason: Nausea/Vomiting Ondansetron HCl (Zofran) Confirm Administered Dose 4 mg .ROUTE .STK-MED ONE Stop: 11/05/17 08:16 Oxytocin (Pitocin) Confirm Administered Dose 20 unit .ROUTE .STK-MED ONE Stop: 11/05/17 08:16 Potassium Chloride (Pharmacy To Dose - Potassium Replacement) 0 dose .XX ASDIRECTED PRN PRN Reason: RX TO WATCH K LEVELS Potassium Chloride (Klor-Con M20) 40 meq PO Q4H [facility] Stop: 11/05/17 08:01 Last Admin: 11/05/17 08:42 Dose: 40 meq Sodium Bicarbonate (Sodium Bicarbonate 8.4%) Confirm Administered Dose 50 meq .ROUTE .STK-MED ONE Stop: 11/05/17 08:16 Sodium Chloride (Saline Flush) 10 ml FLUSH ASDIRECTED PRN PRN Reason: Keep Vein Open - Exam Quality Assessment: DVT Prophylaxis General: Alert, Oriented, Cooperative, No Acute Distress HEENT: Pupils Equal, Pupils Reactive, EOMI Neck: Trachea Midline, No JVD Lungs: Clear to Auscultation Cardiovascular: Regular Rate, Irregular Rhythm GI/Abdominal Exam: Normal Bowel Sounds, Soft, No Organomegaly, No Distention, Tender (Female) Exam: Deferred Back Exam: Normal Inspection Extremities: Normal Inspection Skin: Warm Neurological: No New Focal Deficit Psy/Mental Status: Alert, Normal Affect, Normal Mood Consult PN Assessment/Plan POD#: 1 Procedures: Procedures ASSAY THYROID STIM HORMONE (09/15/17) COMPLETE CBC W/AUTO DIFF WBC (09/15/17) BIOPHYS PROFIL W/O NST (11/03/17) GLUCOSE TEST (08/19/17) OB US >/= 14 WKS SNGL FETUS (06/22/17) OB US FOLLOW-UP PER FETUS (11/03/17) ROUTINE VENIPUNCTURE (09/15/17) STREP B DNA AMP PROBE (10/19/17) URINALYSIS AUTO W/O SCOPE (07/20/17) URINALYSIS AUTO W/SCOPE (05/30/17) (1) Hypomagnesemia SNOMED Code(s): 468396862 Code(s): E83.42 - HYPOMAGNESEMIA Current Visit: Yes (2) 40 weeks gestation of SNOMED Code(s): 46433150 Code(s): Z3A.40 - 40 WEEKS GESTATION OF Current Visit: Yes (3) First degree laceration of perineum, delivered, current hospitalization SNOMED Code(s): 122893700 Code(s): O70.0 - FIRST DEGREE PERINEAL LACERATION DURING DELIVERY Current Visit: Yes (4) Uterine atony, , current hospitalization SNOMED Code(s): 5395264 Code(s): O75.89 - OTHER SPECIFIED COMPLICATIONS OF LABOR AND DELIVERY Current Visit: Yes (5) Ventricular bigeminy SNOMED Code(s): 32133554 Code(s): I49.9 - CARDIAC ARRHYTHMIA, UNSPECIFIED Current Visit: Yes Problem List Initiated/Reviewed/Updated: Yes My Orders Last 24 Hours: My Active Orders 11/06/17 09:34 Magnesium Sulfate/Water [Magnesium Sulfate 4 GM in Water 100 ML] 4 gm Premix Bag 1 bag IV ONETIME 11/06/17 09:35 Potassium Chloride [Klor-Con M20] 40 meq PO ONETIME ONE Plan: Assessment: Asymptomatic Bradycardia with Ventricular Bigeminy Hypomagnesemia Full-Term , see OB note of L/D Plan: Recommended predelivery-->checking her electrolytes, serial ekgs, thyroid panel , telemetry and immediate delivery of the baby. No cardiac medications needed at this time. DC, will correct Mg w/ MgSO4 4 gm x1; suggest--- MgO 400 mg BID for 8 weeks Holter monitor-48 hours Cardiology appt 4- 8 weeks
--- NOTE | 2017-11-06 10:15 | PCM.SN ---
- Free Text/Narrative Note: day 1 Continues with hypomagnesemia and ventricular bigeminy. Patient has been seen by Dr. Whitley (hospitalist) Will treat with 4 g of magnesium sulfate intravenously and then began magnesium oxide 400 mg by mouth twice a day prescription for 60 given the patient's to get filled today so it'll have this for when she goes home. Patient has been having severe cramping Percocet 1-2 by mouth every 5 hours do not exceed 4000 mg of acetaminophen daily. No heavy vaginal bleeding no leg cramping. Prescription also given the get feel for Percocet 5/325 dispense 15 take 1 by mouth every 6 hours when necessary pain at home.
[2017-11-06] MEDS: Acetaminophen/oxyCODONE 325-5 MG Tab PO PRN ×3 (10:34→22:48)
[2017-11-07] MEDS: Ibuprofen 600 MG Tab PO PRN (03:42)
[2017-11-07] MEDS: Acetaminophen/oxyCODONE 325-5 MG Tab PO PRN (08:16)
[2017-11-07] MEDS: Prenatal Multivitamin with Calcium/Folic Acid/Iron Tab PO SCH (08:17)
[2017-11-07] MEDS ORDERED: Magnesium Sulfate/Water 2 GM in Premix Bag 1 BAG IV ONE ×2 (09:54→10:06)
[2017-11-07] MEDS ORDERED: Magnesium Sulfate/Water 50 ML ONE (10:04)
--- NOTE | 2017-11-07 10:05 | PCM.DCSUM1 ---
Discharge Summary - Hospital Course Free Text/Narrative:: [facility] LIVE L/D Delivery Note Patient Name: OLGA PIKE Date of : 87 Patient Status: Inpatient Attending Provider: Rohith Weeks Date: 11/05/17 18:38 Initialization Date: 11/05/17 18:38 L & D Note - General Info Date of Service: 11/05/17 Mother's Due Date: 11/11/17 - Delivery Note Labor: Spontaneous, Augmented by ARM, Augmented by Oxytocin Delivery Outcome: Livebirth (Male liveborn Tuesday11/05/17 at 1827 hrs. weight pending Apgars 8/9 TARIK no nuchal cord) Infant Delivery Method: Spontaneous Vaginal Delivery-Single Infant Delivery Mode: Spontaneous Presentation: Left Occiput Anterior (TARIK) Nuchal Cord: None Prep: Povidone-Iodine (Betadine Anesthesia Type: Epidural Episiotomy Type: None Laceration: 1st Degree (Midline first-degree sutured with one [id number] suture 3-0 Monocryl) Placenta: Intact, Spontaneous (Delivered at 1830 hrs. on 11/05/17Tuesday intact examined discarded) Cord: 3 Vessels Estimated Blood Loss: 750 (Cytotec 200 g 2 1 each cheek) Resuscitation Needed: No [place]: Suctioned, Bulb Syringe, Stimulated, Warmed, Simon Used, Warmer Used Provider: Rohith Weeks Score 1 min: 8 Score 5 min: 9 - General Info Date of Service: 11/05/17 Functional Status: Reports: Pain Controlled - Review of Systems General: Reports: No Symptoms HEENT: Reports: No Symptoms Pulmonary: Reports: No Symptoms Cardiovascular: Reports: No Symptoms Gastrointestinal: Reports: No Symptoms Genitourinary: Reports: No Symptoms Musculoskeletal: Reports: No Symptoms Skin: Reports: No Symptoms Neurological: Reports: No Symptoms Psychiatric: Reports: No Symptoms - Patient Data Vitals - Most Recent: Last Vital Signs Temp 98.2 F 11/04/17 21:03 Pulse 55 L 11/05/17 01:24 Resp 15 11/05/17 01:24 BP 118/71 11/04/17 21:04 Pulse Ox 98 11/05/17 01:24 Weight - Most Recent: 221 lb I&O - Last 24 Hours: Intake & Output 11/05/17 11/05/17 11/05/17 06:59 14:59 22:59 Intake Total 4100 Balance 4100 Lab Results Last 24 Hours: Laboratory Results - last 24 hr 11/04/17 11/05/17 11/05/17 Range/Units 21:20 02:05 02:05 WBC 8.17 (3.98-10.04) K/mm3 RBC 4.00 (3.98-5.22) M/mm3 Hgb 10.3 L (11.2-15.7) gm/L Hct 32.4 L (34.1-44.9) % MCV 81.0 (79.4-94.8) fl MCH 25.8 (25.6-32.2) pg MCHC 31.8 L (32.2-35.5) g/dl RDW Std Deviation 43.6 (36.4-46.3) fL Plt Count 217 (182-369) K/mm3 MPV 10.4 (9.4-12.3) fl Neut % (Auto) 73.3 H (34.0-71.1) % Lymph % (Auto) 19.3 (19.3-51.7) % Humphreys % (Auto) 5.8 (4.7-12.5) % Eos % (Auto) 1.0 (0.7-5.8) Baso % (Auto) 0.1 (0.1-1.2) % Neut # (Auto) 5.99 (1.56-6.13) K/mm3 Lymph # (Auto) 1.58 (1.18-3.74) K/mm3 Humphreys # (Auto) 0.47 H (0.24-0.36) K/mm3 Eos # (Auto) 0.08 (0.04-0.36) K/mm3 Baso # (Auto) 0.01 (0.01-0.08) K/mm3 Sodium 136 (136-145) mEq/L Potassium 3.6 (3.5-5.1) mEq/L Chloride 103 (98-107) mEq/L Carbon Dioxide 25 (21-32) mEq/L Anion Gap 11.6 (5-15) BUN 10 (7-18) mg/dL Creatinine 0.6 (0.55-1.02) mg/dL Est Cr Clr Drug Dosing 118.39 mL/min Estimated GFR (MDRD) > 60 (>60) mL/min BUN/Creatinine Ratio 16.7 (14-18) Glucose 91 (74-106) mg/dL Calcium 8.5 (8.5-10.1) mg/dL Magnesium 1.4 L (1.8-2.4) mg/dl Free T4 0.98 (0.76-1.46) ng/dL TSH 3rd Generation 2.778 (0.358-3.74) uIU/mL Med Orders - Current: Current Medications Acetaminophen (Tylenol) 650 mg PO Q4H PRN PRN Reason: Pain Last Admin: 11/04/17 22:20 Dose: 650 mg Diphenhydramine HCl (Benadryl) 25 mg IVPUSH Q6H PRN PRN Reason: Pruritis Ephedrine Sulfate (Ephedrine Sulfate) 5 mg IVPUSH ASDIRECTED PRN PRN Reason: Hypotension Fentanyl (Sublimaze) 100 mcg EPIDUR ONETIME PRN PRN Reason: Pain Last Admin: 11/05/17 01:25 Dose: 100 mcg Fentanyl/Bupivacaine HCl (Fentanyl/Bupivacaine/Ns 2 Mcg-0.125% 100 Ml) 100 ml EPIDUR ASDIRECTED ARLETTE Last Admin: 11/05/17 15:50 Dose: 100 ml Lactated Ringer's (Ringers, Lactated) 1,000 mls @ 100 mls/hr IV ASDIRECTED ARLETTE Last Admin: 11/05/17 13:17 Dose: 100 mls/hr Oxytocin/Lactated Ringer's (Pitocin In Lr 10 Units/1,000 Ml) 10 unit in 1,000 mls @ 12 mls/hr IV TITRATE ARLETTE; Protocol Last Titration: 11/05/17 14:05 Dose: 8 munits/min, 48 mls/hr Oxytocin/Lactated Ringer's (Pitocin In Lr 10 Units/1,000 Ml) 10 unit in 1,000 mls @ 500 mls/hr IV .CONTINUOUS ARLETTE; Protocol Magnesium Sulfate (Pharmacy To Dose - Magnesium Replacement) 0 dose .XX ASDIRECTED PRN PRN Reason: RX TO WATCH MAG LEVELS Nalbuphine HCl (Nubain) 10 mg IVPUSH Q2H PRN PRN Reason: Pain (moderate 4-6) Ondansetron HCl (Zofran) 4 mg IVPUSH Q4H PRN PRN Reason: Nausea/Vomiting Last Admin: 11/05/17 17:30 Dose: 4 mg Ondansetron HCl (Zofran) 4 mg IVPUSH ONETIME PRN PRN Reason: Nausea/Vomiting Potassium Chloride (Pharmacy To Dose - Potassium Replacement) 0 dose .XX ASDIRECTED PRN PRN Reason: RX TO WATCH K LEVELS Sodium Chloride (Saline Flush) 10 ml FLUSH ASDIRECTED PRN PRN Reason: Keep Vein Open Discontinued Medications Cefazolin Sodium (Ancef) Confirm Administered Dose 2 gm .ROUTE .STK-MED ONE Stop: 11/05/17 08:16 Magnesium Sulfate (Magnesium Sulfate 2 Gm In Water 50 Ml) 50 mls @ 25 mls/hr IV Q2H [facility] Stop: 11/05/17 07:29 Last Admin: 11/05/17 07:20 Dose: 25 mls/hr Lactated Ringer's (Ringers, Lactated) Confirm Administered Dose 2,000 mls @ as directed .ROUTE .STK-MED ONE Stop: 11/05/17 08:16 Ketorolac Tromethamine (Toradol) Confirm Administered Dose 30 mg .ROUTE .STK- MED ONE Stop: 11/05/17 08:16 Lidocaine/Epinephrine (Xylocaine-Mpf 2%-Epi 1:200,000) Confirm Administered Dose 20 ml .ROUTE .STK-MED ONE Stop: 11/05/17 08:16 Misoprostol (Cytotec) 25 mcg VAG Q4HR [facility] Last Admin: 11/05/17 08:34 Dose: Not Given Misoprostol (Cytotec) Confirm Administered Dose 400 mcg .ROUTE .STK-MED ONE Stop: 11/05/17 18:33 Morphine Sulfate (Duramorph Pf) Confirm Administered Dose 10 mg .ROUTE .STK-MED ONE Stop: 11/05/17 08:16 Nalbuphine HCl (Nubain) 10 mg IVPUSH Q2H PRN PRN Reason: Pain (moderate 4-6) Ondansetron HCl (Zofran) Confirm Administered Dose 4 mg .ROUTE .STK-MED ONE Stop: 11/05/17 08:16 Oxytocin (Pitocin) Confirm Administered Dose 20 unit .ROUTE .STK-MED ONE Stop: 11/05/17 08:16 Potassium Chloride (Klor-Con M20) 40 meq PO Q4H ARLETTE Stop: 11/05/17 08:01 Last Admin: 11/05/17 08:42 Dose: 40 meq Sodium Bicarbonate (Sodium Bicarbonate 8.4%) Confirm Administered Dose 50 meq .ROUTE .STK-MED ONE Stop: 11/05/17 08:16 - Exam (Female) Exam: Other (750 mL estimated blood loss at delivery some uterine atony initially resolved with massage, Pitocin, Cytotec 200 g 2.1 in each cheek) - Problem List & Annotations (1) 40 weeks gestation of SNOMED Code(s): 67685889 Code(s): Z3A.40 - 40 WEEKS GESTATION OF Status: Acute Current Visit: Yes (2) Ventricular bigeminy SNOMED Code(s): 72349488 Code(s): I49.9 - CARDIAC ARRHYTHMIA, UNSPECIFIED Status: Acute Current Visit: Yes (3) First degree laceration of perineum, delivered, current hospitalization SNOMED Code(s): 670545671 Code(s): O70.0 - FIRST DEGREE PERINEAL LACERATION DURING DELIVERY Status: Acute Current Visit: Yes (4) Uterine atony, , current hospitalization SNOMED Code(s): 4657464 Code(s): O75.89 - OTHER SPECIFIED COMPLICATIONS OF LABOR AND DELIVERY Status: Acute Current Visit: Yes - Problem List Review Problem List Initiated/Reviewed/Updated: No - My Orders Last 24 Hours: My Active Orders 11/04/17 21:03 Patient Status [ADT] Routine Activity as Tolerated [RC] PFP Communication Order [RC] ASDIRECTED Notify Provider [RC] PFP Notify Provider [RC] PRN Urinary Catheter Assessment [RC] ASDIRECTED Vital Signs [RC] PER UNIT ROUTINE Ondansetron [Zofran] 4 mg IVPUSH Q4H PRN Sodium Chloride 0.9% [Saline Flush] 10 ml FLUSH ASDIRECTED PRN Electronic Heart Tones Ext w TOCO [WOMSER] Routine Electronic Heart Tones Internal [WOMSER] Per Unit Routine Peripheral IV Insertion Adult [OM.PC] Routine Resuscitation Status Routine 11/04/17 21:04 Heart Tones [RC] ASDIRECTED Peripheral IV Care [RC] . DIRECTED 11/04/17 21:05 Pump Management, Intrathecal [RC] ASDIRECTED 11/04/17 21:15 Lactated Ringers [Ringers, Lactated] 1,000 ml IV ASDIRECTED Oxytocin/Lactated Ringers [Pitocin in LR 10 Units/1,000 ML] 10 unit in 1,000 ml IV .CONTINUOUS Oxytocin/Lactated Ringers [Pitocin in LR 10 Units/1,000 ML] 10 unit in 1,000 ml IV TITRATE 11/04/17 21:51 Acetaminophen [Tylenol] 650 mg PO Q4H PRN 11/05/17 01:40 EKG 12 Lead [EK] Routine 11/05/17 01:41 EKG Documentation Completion [RC] ASDIRECTED 11/05/17 01:54 Cardiac Monitoring [RC] . DIRECTED 11/05/17 02:06 Consult to Physician [CONS] Stat 11/05/17 02:11 Notify Provider Consults [RC] ASDIRECTED 11/05/17 08:09 Nalbuphine [Nubain] 10 mg IVPUSH Q2H PRN - Plan Plan:: Exam at 0 8:30 are confirmed cephalic by ultrasound at bedside and pelvic examination. Cervix 3 cm dilated 70% effaced posterior soft -3 vertex presentation. Restart Pitocin. HPI Initial Comments: [facility] LIVE L/D Delivery Note Patient Name: OLGA PIKE Date of : 87 Patient Status: Inpatient Attending Provider: Rohith Weeks Date: 11/05/17 18:38 Initialization Date: 11/05/17 18:38 L & D Note - General Info Date of Service: 11/05/17 Mother's Due Date: 11/11/17 - Delivery Note Labor: Spontaneous, Augmented by ARM, Augmented by Oxytocin Delivery Outcome: Livebirth (Male liveborn Tuesday11/05/17 at 1827 hrs. weight pending Apgars 8/9 TARIK no nuchal cord) Delivery Method: Spontaneous Vaginal Delivery-Single Infant Delivery Mode: Spontaneous Presentation: Left Occiput Anterior (TARIK) Nuchal Cord: None Prep: Povidone-Iodine (Betadine Anesthesia Type: Epidural Episiotomy Type: None Laceration: 1st Degree (Midline first-degree sutured with one fefbvb-cp-pdjxo suture 3-0 Monocryl) Placenta: Intact, Spontaneous (Delivered at 1830 hrs. on 11/05/17Tuesday intact examined discarded) Cord: 3 Vessels Estimated Blood Loss: 750 (Cytotec 200 g 2 1 each cheek) Resuscitation Needed: No : Suctioned, Bulb Syringe, Stimulated, Warmed, Simon Used, Warmer Used Provider: Rohith Weeks Score 1 min: 8 Score 5 min: 9 - General Info Date of Service: 11/05/17 Functional Status: Reports: Pain Controlled - Review of Systems General: Reports: No Symptoms HEENT: Reports: No Symptoms Pulmonary: Reports: No Symptoms Cardiovascular: Reports: No Symptoms Gastrointestinal: Reports: No Symptoms Genitourinary: Reports: No Symptoms Musculoskeletal: Reports: No Symptoms Skin: Reports: No Symptoms Neurological: Reports: No Symptoms Psychiatric: Reports: No Symptoms - Patient Data Vitals - Most Recent: Last Vital Signs Temp 98.2 F 11/04/17 21:03 Pulse 55 L 11/05/17 01:24 Resp 15 11/05/17 01:24 BP 118/71 11/04/17 21:04 Pulse Ox 98 11/05/17 01:24 Weight - Most Recent: 221 lb I&O - Last 24 Hours: Intake & Output 11/05/17 11/05/17 11/05/17 06:59 14:59 22:59 Intake Total 4100 Balance 4100 Lab Results Last 24 Hours: Laboratory Results - last 24 hr 11/04/17 11/05/17 11/05/17 Range/Units 21:20 02:05 02:05 WBC 8.17 (3.98-10.04) K/mm3 RBC 4.00 (3.98-5.22) M/mm3 Hgb 10.3 L (11.2-15.7) gm/L Hct 32.4 L (34.1-44.9) % MCV 81.0 (79.4-94.8) fl MCH 25.8 (25.6-32.2) pg MCHC 31.8 L (32.2-35.5) g/dl RDW Std Deviation 43.6 (36.4-46.3) fL Plt Count 217 (182-369) K/mm3 MPV 10.4 (9.4-12.3) fl Neut % (Auto) 73.3 H (34.0-71.1) % Lymph % (Auto) 19.3 (19.3-51.7) % Humphreys % (Auto) 5.8 (4.7-12.5) % Eos % (Auto) 1.0 (0.7-5.8) Baso % (Auto) 0.1 (0.1-1.2) % Neut # (Auto) 5.99 (1.56-6.13) K/mm3 Lymph # (Auto) 1.58 (1.18-3.74) K/mm3 Humphreys # (Auto) 0.47 H (0.24-0.36) K/mm3 Eos # (Auto) 0.08 (0.04-0.36) K/mm3 Baso # (Auto) 0.01 (0.01-0.08) K/mm3 Sodium 136 (136-145) mEq/L Potassium 3.6 (3.5-5.1) mEq/L Chloride 103 (98-107) mEq/L Carbon Dioxide 25 (21-32) mEq/L Anion Gap 11.6 (5-15) BUN 10 (7-18) mg/dL Creatinine 0.6 (0.55-1.02) mg/dL Est Cr Clr Drug Dosing 118.39 mL/min Estimated GFR (MDRD) > 60 (>60) mL/min BUN/Creatinine Ratio 16.7 (14-18) Glucose 91 (74-106) mg/dL Calcium 8.5 (8.5-10.1) mg/dL Magnesium 1.4 L (1.8-2.4) mg/dl Free T4 0.98 (0.76-1.46) ng/dL TSH 3rd Generation 2.778 (0.358-3.74) uIU/mL Med Orders - Current: Current Medications Acetaminophen (Tylenol) 650 mg PO Q4H PRN PRN Reason: Pain Last Admin: 11/04/17 22:20 Dose: 650 mg Diphenhydramine HCl (Benadryl) 25 mg IVPUSH Q6H PRN PRN Reason: Pruritis Ephedrine Sulfate (Ephedrine Sulfate) 5 mg IVPUSH ASDIRECTED PRN PRN Reason: Hypotension Fentanyl (Sublimaze) 100 mcg EPIDUR ONETIME PRN PRN Reason: Pain Last Admin: 11/05/17 01:25 Dose: 100 mcg Fentanyl/Bupivacaine HCl (Fentanyl/Bupivacaine/Ns 2 Mcg-0.125% 100 Ml) 100 ml EPIDUR ASDIRECTED ARLETTE Last Admin: 11/05/17 15:50 Dose: 100 ml Lactated Ringer's (Ringers, Lactated) 1,000 mls @ 100 mls/hr IV ASDIRECTED ARLETTE Last Admin: 11/05/17 13:17 Dose: 100 mls/hr Oxytocin/Lactated Ringer's (Pitocin In Lr 10 Units/1,000 Ml) 10 unit in 1,000 mls @ 12 mls/hr IV TITRATE ARLETTE; Protocol Last Titration: 11/05/17 14:05 Dose: 8 munits/min, 48 mls/hr Oxytocin/Lactated Ringer's (Pitocin In Lr 10 Units/1,000 Ml) 10 unit in 1,000 mls @ 500 mls/hr IV .CONTINUOUS ARLETTE; Protocol Magnesium Sulfate (Pharmacy To Dose - Magnesium Replacement) 0 dose .XX ASDIRECTED PRN PRN Reason: RX TO WATCH MAG LEVELS Nalbuphine HCl (Nubain) 10 mg IVPUSH Q2H PRN PRN Reason: Pain (moderate 4-6) Ondansetron HCl (Zofran) 4 mg IVPUSH Q4H PRN PRN Reason: Nausea/Vomiting Last Admin: 11/05/17 17:30 Dose: 4 mg Ondansetron HCl (Zofran) 4 mg IVPUSH ONETIME PRN PRN Reason: Nausea/Vomiting Potassium Chloride (Pharmacy To Dose - Potassium Replacement) 0 dose .XX ASDIRECTED PRN PRN Reason: RX TO WATCH K LEVELS Sodium Chloride (Saline Flush) 10 ml FLUSH ASDIRECTED PRN PRN Reason: Keep Vein Open Discontinued Medications Cefazolin Sodium (Ancef) Confirm Administered Dose 2 gm .ROUTE .STK-MED ONE Stop: 11/05/17 08:16 Magnesium Sulfate (Magnesium Sulfate 2 Gm In Water 50 Ml) 50 mls @ 25 mls/hr IV Q2H ARLETTE Stop: 11/05/17 07:29 Last Admin: 11/05/17 07:20 Dose: 25 mls/hr Lactated Ringer's (Ringers, Lactated) Confirm Administered Dose 2,000 mls @ as directed .ROUTE .STK-MED ONE Stop: 11/05/17 08:16 Ketorolac Tromethamine (Toradol) Confirm Administered Dose 30 mg .ROUTE .STK- MED ONE Stop: 11/05/17 08:16 Lidocaine/Epinephrine (Xylocaine-Mpf 2%-Epi 1:200,000) Confirm Administered Dose 20 ml .ROUTE .STK-MED ONE Stop: 11/05/17 08:16 Misoprostol (Cytotec) 25 mcg VAG Q4HR [facility] Last Admin: 11/05/17 08:34 Dose: Not Given Misoprostol (Cytotec) Confirm Administered Dose 400 mcg .ROUTE .STK-MED ONE Stop: 11/05/17 18:33 Morphine Sulfate (Duramorph Pf) Confirm Administered Dose 10 mg .ROUTE .STK-MED ONE Stop: 11/05/17 08:16 Nalbuphine HCl (Nubain) 10 mg IVPUSH Q2H PRN PRN Reason: Pain (moderate 4-6) Ondansetron HCl (Zofran) Confirm Administered Dose 4 mg .ROUTE .STK-MED ONE Stop: 11/05/17 08:16 Oxytocin (Pitocin) Confirm Administered Dose 20 unit .ROUTE .STK-MED ONE Stop: 11/05/17 08:16 Potassium Chloride (Klor-Con M20) 40 meq PO Q4H [facility] Stop: 11/05/17 08:01 Last Admin: 11/05/17 08:42 Dose: 40 meq Sodium Bicarbonate (Sodium Bicarbonate 8.4%) Confirm Administered Dose 50 meq .ROUTE .STK-MED ONE Stop: 11/05/17 08:16 - Exam (Female) Exam: Other (750 mL estimated blood loss at delivery some uterine atony initially resolved with massage, Pitocin, Cytotec 200 g 2.1 in each cheek) - Problem List & Annotations (1) 40 weeks gestation of SNOMED Code(s): 42047825 Code(s): Z3A.40 - 40 WEEKS GESTATION OF Status: Acute Current Visit: Yes (2) Ventricular bigeminy SNOMED Code(s): 41900568 Code(s): I49.9 - CARDIAC ARRHYTHMIA, UNSPECIFIED Status: Acute Current Visit: Yes (3) First degree laceration of perineum, delivered, current hospitalization SNOMED Code(s): 656871354 Code(s): O70.0 - FIRST DEGREE PERINEAL LACERATION DURING DELIVERY Status: Acute Current Visit: Yes (4) Uterine atony, , current hospitalization SNOMED Code(s): 0893473 Code(s): O75.89 - OTHER SPECIFIED COMPLICATIONS OF LABOR AND DELIVERY Status: Acute Current Visit: Yes - Problem List Review Problem List Initiated/Reviewed/Updated: No - My Orders Last 24 Hours: My Active Orders 11/04/17 21:03 Patient Status [ADT] Routine Activity as Tolerated [RC] PFP Communication Order [RC] ASDIRECTED Notify Provider [RC] PFP Notify Provider [RC] PRN Urinary Catheter Assessment [RC] ASDIRECTED Vital Signs [RC] PER UNIT ROUTINE Ondansetron [Zofran] 4 mg IVPUSH Q4H PRN Sodium Chloride 0.9% [Saline Flush] 10 ml FLUSH ASDIRECTED PRN Electronic Heart Tones Ext w TOCO [WOMSER] Routine Electronic Heart Tones Internal [WOMSER] Per Unit Routine Peripheral IV Insertion Adult [OM.PC] Routine Resuscitation Status Routine 11/04/17 21:04 Heart Tones [RC] ASDIRECTED Peripheral IV Care [RC] . DIRECTED 11/04/17 21:05 Pump Management, Intrathecal [RC] ASDIRECTED 11/04/17 21:15 Lactated Ringers [Ringers, Lactated] 1,000 ml IV ASDIRECTED Oxytocin/Lactated Ringers [Pitocin in LR 10 Units/1,000 ML] 10 unit in 1,000 ml IV .CONTINUOUS Oxytocin/Lactated Ringers [Pitocin in LR 10 Units/1,000 ML] 10 unit in 1,000 ml IV TITRATE 11/04/17 21:51 Acetaminophen [Tylenol] 650 mg PO Q4H PRN 11/05/17 01:40 EKG 12 Lead [EK] Routine 11/05/17 01:41 EKG Documentation Completion [RC] ASDIRECTED 11/05/17 01:54 Cardiac Monitoring [RC] . DIRECTED 11/05/17 02:06 Consult to Physician [CONS] Stat 11/05/17 02:11 Notify Provider Consults [RC] ASDIRECTED 11/05/17 08:09 Nalbuphine [Nubain] 10 mg IVPUSH Q2H PRN - Plan Plan:: Exam at 0 8:30 are confirmed cephalic by ultrasound at bedside and pelvic examination. Cervix 3 cm dilated 70% effaced posterior soft -3 vertex presentation. Restart Pitocin. Brief History: [facility] LIVE . L[facility]: [id number] Date of : Patient Status: Inpatient. Attending Provider: Rohith Weeksanayeli Number: [id number]. Date: 11/05/17 18:38Initialization Date: 11/05/17 18:38. L & D Note. - General Info. Date of Service: 11/05/17. Mother's Due Date: 11/11/17. - Delivery Note. Labor: Spontaneous, Augmented by ARM, Augmented by Oxytocin. Delivery Outcome: Livebirth (Male liveborn Tuesday11/05/17 at 1827 hrs. weight pending Apgars 8/9 TARIK no nuchal cord). Infant Delivery Method: Spontaneous Vaginal Delivery-Single. Infant Delivery Mode: Spontaneous. Presentation: Left Occiput Anterior (TARIK). Nuchal Cord: None. Prep: Povidone- Iodine (Betadine. Anesthesia Type: Epidural. Episiotomy Type: None. Laceration: 1st Degree (Midline first-degree sutured with one [id number]-uw-[id number] suture 3-0 Monocryl). Placenta: Intact, Spontaneous (Delivered at 1830 hrs. on 11/05/17Tuesday intact examined discarded). Cord: 3 Vessels. Estimated Blood Loss: 750 (Cytotec 200 g 2 1 each cheek). Resuscitation Needed: No. [place] : Suctioned, Bulb Syringe, Stimulated, Warmed, Simon Used, Warmer Used. Provider: Rohith Weeks. Score 1 min: 8. Score 5 min : 9. - General Info. Date of Service: 11/05/17. Functional Status: Reports: Pain Controlled. - Review of Systems. General: Reports: No Symptoms. HEENT: Reports: No Symptoms. Pulmonary: Reports: No Symptoms. Cardiovascular: Reports : No Symptoms. Gastrointestinal: Reports: No Symptoms. Genitourinary: Reports : No Symptoms. Musculoskeletal: Reports: No Symptoms. Skin: Reports: No Symptoms. Neurological: Reports: No Symptoms. Psychiatric: Reports: No Symptoms. - Patient Data. Vitals - Most Recent: Last Vital Signs. Temp 98.2 F 11/04/17 21:03. Pulse 55 L 11/05/17 01:24. Resp 15 11/05/17 01:24. BP 118 /71 11/04/17 21:04. Pulse Ox 98 11/05/17 01:24. Weight - Most Recent: 221 lb. I&O - Last 24 Hours: Intake & Output. 11/05/1804. 06:5914: 5922:59. Intake [id number]. [id number]. Lab Results Last 24 Hours: Laboratory Results - last 24 hr. 11/04/1804Range/Units. : 0502:05. WBC 8.17 (3.98-10.04) K/mm3. RBC 4.00 (3.98-5.22) M/mm3. Hgb 10.3 L (11.2-15.7) gm/L. Hct 32.4 L (34.1-44.9) %. MCV 81.0 (79.4-94.8) fl. MCH 25.8 (25.6-32.2) pg. MCHC 31.8 L (32.2-35.5) g/dl. RDW Std Deviation 43.6 (36.4-46.3) fL. Plt Count 217 (182-369) K/mm3. MPV 10.4 (9.4-12.3) fl. Neut % (Auto) 73.3 H (34.0-71.1) %. Lymph % (Auto) 19.3 (19.3-51.7) %. Humphreys % (Auto) 5.8 (4.7-12.5) %. Eos % (Auto) 1.0 (0.7-5.8). Baso % (Auto) 0.1 (0.1-1.2) %. Neut # (Auto) 5.99 (1.56-6.13) K/mm3. Lymph # (Auto) 1.58 ( 1.18-3.74) K/mm3. Humphreys # (Auto) 0.47 H (0.24-0.36) K/mm3. Eos # (Auto) 0.08 (0.04-0.36) K/mm3. Baso # (Auto) 0.01 (0.01-0.08) K/mm3. Sodium 136 (136-145 ) mEq/L. Potassium 3.6 (3.5-5.1) mEq/L. Chloride 103 (98-107) mEq/L. Carbon Dioxide 25 (21-32) mEq/L. Anion Gap 11.6 (5-15). BUN 10 (7-18) mg/ dL. Creatinine 0.6 (0.55-1.02) mg/dL. Est Cr Clr Drug Dosing 118.39 mL/min. Estimated GFR (MDRD) > 60 (>60) mL/min. BUN/Creatinine Ratio 16.7 (14-18). Glucose 91 (74-106) mg/dL. Calcium 8.5 (8.5-10.1) mg/dL. Magnesium 1.4 L ( 1.8-2.4) mg/dl. Free T4 0.98 (0.76-1.46) ng/dL. TSH 3rd Generation 2.778 ( 0.358-3.74) uIU/mL. Med Orders - Current: Current Medications. Acetaminophen (Tylenol) 650 mg PO Q4H PRN. PRN Reason: Pain. Last Admin: 22:20 Dose: 650 mg. Diphenhydramine HCl (Benadryl) 25 mg IVPUSH Q6H PRN. PRN Reason: Pruritis. Ephedrine Sulfate (Ephedrine Sulfate) 5 mg IVPUSH ASDIRECTED PRN. PRN Reason: Hypotension. Fentanyl (Sublimaze) 100 mcg EPIDUR ONETIME PRN. PRN Reason: Pain. Last Admin: 11/05/17 01:25 Dose: 100 mcg. Fentanyl/Bupivacaine HCl (Fentanyl/Bupivacaine/Ns 2 Mcg-0.125% 100 Ml) 100 ml EPIDUR ASDIRECTED ARLETTE. Last Admin: 11/05/17 15:50 Dose: 100 ml. Lactated Ringer's (Ringers, Lactated) 1,000 mls @ 100 mls/hr IV ASDIRECTED ARLETTE. Last Admin: 11/05/17 13:17 Dose: 100 mls/hr. Oxytocin/Lactated Ringer's (Pitocin In Lr 10 Units/1,000 Ml) 10 unit in 1,000 mls @ 12 mls/hr IV TITRATE ARLETTE; Protocol. Last Titration: 11/05/17 14:05 Dose: 8 munits/min, 48 mls/hr. Oxytocin/Lactated Ringer's (Pitocin In Lr 10 Units/1,000 Ml) 10 unit in 1,000 mls @ 500 mls/hr IV .CONTINUOUS ARLETTE; Protocol. Magnesium Sulfate (Pharmacy To Dose - Magnesium Replacement) 0 dose .XX ASDIRECTED PRN. PRN Reason: RX TO WATCH MAG LEVELS. Nalbuphine HCl (Nubain) 10 mg IVPUSH Q2H PRN. PRN Reason: Pain (moderate 4-6). Ondansetron HCl (Zofran) 4 mg IVPUSH Q4H PRN. PRN Reason : Nausea/Vomiting. Last Admin: 11/05/17 17:30 Dose: 4 mg. Ondansetron HCl ( Zofran) 4 mg IVPUSH ONETIME PRN. PRN Reason: Nausea/Vomiting. Potassium Chloride (Pharmacy To Dose - Potassium Replacement) 0 dose .XX ASDIRECTED PRN. PRN Reason: RX TO WATCH K LEVELS. Sodium Chloride (Saline Flush) 10 ml FLUSH ASDIRECTED PRN. PRN Reason: Keep Vein Open. Discontinued Medications. Cefazolin Sodium (Ancef) Confirm Administered Dose 2 gm .ROUTE .STK-MED ONE. Stop: 11/05/17 08:16. Magnesium Sulfate (Magnesium Sulfate 2 Gm In Water 50 Ml ) 50 mls @ 25 mls/hr IV Q2H ARLETTE. Stop: 11/05/17 07:29. Last Admin: 11/05/17 07:20 Dose: 25 mls/hr. Lactated Ringer's (Ringers, Lactated) Confirm Administered Dose 2,000 mls @ as directed .ROUTE .STK-MED ONE. Stop: 11/05/17 08:16. Ketorolac Tromethamine (Toradol) Confirm Administered Dose 30 mg .ROUTE .STK-MED ONE. Stop: 11/05/17 08:16. Lidocaine/Epinephrine (Xylocaine-Mpf 2%- Epi 1:200,000) Confirm Administered Dose 20 ml .ROUTE .STK-MED ONE. Stop: 11/05 08:16. Misoprostol (Cytotec) 25 mcg VAG Q4HR ARLETTE. Last Admin: 11/05/17 08 :34 Dose: Not Given. Misoprostol (Cytotec) Confirm Administered Dose 400 mcg .ROUTE .STK-MED ONE. Stop: 11/05/17 18:33. Morphine Sulfate (Duramorph Pf) Confirm Administered Dose 10 mg .ROUTE .STK-MED ONE. Stop: 11/05/17 08:16. Nalbuphine HCl (Nubain) 10 mg IVPUSH Q2H PRN. PRN Reason: Pain (moderate 4-6) . Ondansetron HCl (Zofran) Confirm Administered Dose 4 mg .ROUTE .STK-MED ONE. Stop: 11/05/17 08:16. Oxytocin (Pitocin) Confirm Administered Dose 20 unit .ROUTE .STK-MED ONE. Stop: 11/05/17 08:16. Potassium Chloride (Klor-Con M20) 40 meq PO Q4H ARLETTE. Stop: 11/05/17 08:01. Last Admin: 11/05/17 08:42 Dose: 40 meq. Sodium Bicarbonate (Sodium Bicarbonate 8.4%) Confirm Administered Dose 50 meq .ROUTE .STK-MED ONE. Stop: 11/05/17 08:16. - Exam. (Female) Exam: Other (750 mL estimated blood loss at delivery some uterine atony initially resolved with massage, Pitocin, Cytotec 200 g 2.1 in each cheek). - Problem List & Annotations. (1) 40 weeks gestation of . SNOMED Code(s): 53951232. Code(s): Z3A.40 - 40 WEEKS GESTATION OF Status: Acute Current Visit: Yes. (2) Ventricular bigeminy. SNOMED Code(s): 81944389. Code( s): I49.9 - CARDIAC ARRHYTHMIA, UNSPECIFIED Status: Acute Current Visit: Yes. (3) First degree laceration of perineum, delivered, current hospitalization. SNOMED Code(s): 644358995. Code(s): O70.0 - FIRST DEGREE PERINEAL LACERATION DURING DELIVERY Status: Acute Current Visit: Yes. (4) Uterine atony, , current hospitalization. SNOMED Code(s): 3577982. Code(s): O75.89 - OTHER SPECIFIED COMPLICATIONS OF LABOR AND DELIVERY Status: Acute Current Visit: Yes. - Problem List Review. Problem List Initiated/ Reviewed/Updated: No. - My Orders. Last 24 Hours: My Active Orders. 21:03. Patient Status [ADT] Routine. Activity as Tolerated [RC] PFP. Communication Order [RC] ASDIRECTED. Notify Provider [RC] PFP. Notify Provider [RC] PRN. Urinary Catheter Assessment [RC] ASDIRECTED. Vital Signs [ RC] PER UNIT ROUTINE. Ondansetron [Zofran] 4 mg IVPUSH Q4H PRN. Sodium Chloride 0.9% [Saline Flush] 10 ml FLUSH ASDIRECTED PRN. Electronic Heart Tones Ext w TOCO [WOMSER] Routine. Electronic Heart Tones Internal [WOMSER] Per Unit Routine. Peripheral IV Insertion Adult [OM.PC] Routine. Resuscitation Status Routine. 11/04/17 21:04. Heart Tones [RC] ASDIRECTED. Peripheral IV Care [RC] . DIRECTED. 11/04/17 21:05. Pump Management, Intrathecal [RC] ASDIRECTED. 11/04/17 21:15. Lactated Ringers [ Ringers, Lactated] 1,000 ml IV ASDIRECTED. Oxytocin/Lactated Ringers [Pitocin in LR 10 Units/1,000 ML] 10 unit in 1,000 ml IV .CONTINUOUS. Oxytocin/Lactated Ringers [Pitocin in LR 10 Units/1,000 ML] 10 unit in 1,000 ml IV TITRATE. 11/04 21:51. Acetaminophen [Tylenol] 650 mg PO Q4H PRN. 11/05/17 01:40. EKG 12 Lead [EK] Routine. 11/05/17 01:41. EKG Documentation Completion [RC] ASDIRECTED. 11/05/17 01:54. Cardiac Monitoring [RC] . DIRECTED. 11/05/17 02 :06. Consult to Physician [CONS] Stat. 11/05/17 02:11. Notify Provider Consults [RC] ASDIRECTED. 11/05/17 08:09. Nalbuphine [Nubain] 10 mg IVPUSH Q2H PRN. - Plan. Plan:: Exam at 0 8:30 are confirmed cephalic by ultrasound at bedside and pelvic examination. Cervix 3 cm dilated 70% effaced posterior soft -3 vertex presentation. Restart Pitocin. - Discharge Data Discharge Date: 11/07/17 Discharge Disposition: Home, Self-Care 01 Condition: Good - Discharge Diagnosis/Problem(s) (1) 40 weeks gestation of SNOMED Code(s): 00310355 ICD Code: Z3A.40 - 40 WEEKS GESTATION OF Status: Acute Current Visit: Yes (2) Ventricular bigeminy SNOMED Code(s): 52953010 ICD Code: I49.9 - CARDIAC ARRHYTHMIA, UNSPECIFIED Status: Acute Current Visit: Yes (3) First degree laceration of perineum, delivered, current hospitalization SNOMED Code(s): 019200587 ICD Code: O70.0 - FIRST DEGREE PERINEAL LACERATION DURING DELIVERY Status: Acute Current Visit: Yes (4) Uterine atony, , current hospitalization SNOMED Code(s): 7524190 ICD Code: O75.89 - OTHER SPECIFIED COMPLICATIONS OF LABOR AND DELIVERY Status: Acute Current Visit: Yes - Patient Summary/Data Complications: Ventricular bigeminy consult to hospitalist Consults: Hospitalist consult to to manage ventricular bigeminy Hospital Course: Uneventful except for the ventricular bigeminy - Patient Instructions Diet: Regular Diet as Tolerated Driving: Do Not Drive (Until okayed by Dr. Nicholson) Showering/Bathing: May Shower Notify Provider of: Fever, Increased Pain, Swelling and Redness, Drainage, Nausea and/or Vomiting - Discharge Plan Prescriptions/Med Rec: Acetaminophen/oxyCODONE [Percocet 325-5 MG] 1 tab PO Q6H PRN #15 tablet PRN Reason: Pain Home Medications: Home Meds Prenat Vit Comb.10/Iron/Fa/Dha [Vitafol-OB + DHA] 1 each PO DAILY 11/04/17 [ History] Acetaminophen/oxyCODONE [Percocet 325-5 MG] 1 tab PO Q6H PRN #15 tablet [Rx] Docusate Sodium [Colace] 100 mg PO BID PRN cap 11/07/17 [Rx] Ibuprofen [Motrin] 600 mg PO Q4H PRN tablet 11/07/17 [Rx] Lanolin [Lansinoh HPA] 1 applic TOP ASDIRECTED PRN tube 11/07/17 [Rx] Chuck Che [Tucks] 1 pad TOP ASDIRECTED PRN pad 11/07/17 [Rx] Patient Handouts: Care After Vaginal Delivery - Discharge Summary/Plan Comment DC Time >30 min.: No - Patient Data Vitals - Most Recent: Last Vital Signs Temp 97.8 F 11/07/17 08:47 Pulse 45 L 11/07/17 08:47 Resp 17 11/07/17 08:47 BP 97/56 L 11/07/17 08:47 Pulse Ox 97 11/07/17 08:47 Weight - Most Recent: 221 lb Lab Results - Last 24 hrs: Laboratory Results - last 24 hr 11/07/17 Range/Units 06:15 Sodium 140 (136-145) mEq/L Potassium 3.9 (3.5-5.1) mEq/L Chloride 107 (98-107) mEq/L Carbon Dioxide 25 (21-32) mEq/L Anion Gap 11.9 (5-15) BUN 6 L (7-18) mg/dL Creatinine 0.6 (0.55-1.02) mg/dL Est Cr Clr Drug Dosing 118.39 mL/min Estimated GFR (MDRD) > 60 (>60) mL/min BUN/Creatinine Ratio 10.0 L (14-18) Glucose 92 (74-106) mg/dL Calcium 8.8 (8.5-10.1) mg/dL Magnesium 1.6 L (1.8-2.4) mg/dl Total Bilirubin 0.2 (0.2-1.0) mg/dL AST 15 (15-37) U/L ALT 15 (14-59) U/L Alkaline Phosphatase 108 (46-116) U/L Total Protein 4.9 L (6.4-8.2) g/dl Albumin 1.8 L (3.4-5.0) g/dl Globulin 3.1 gm/dL Albumin/Globulin Ratio 0.6 L (1-2) Med Orders - Current: Current Medications Acetaminophen (Tylenol) 650 mg PO Q4H PRN PRN Reason: mild pain or fever Last Admin: 11/05/17 23:47 Dose: 650 mg Benzocaine/Menthol (Dermoplast Pain Relief [place]) 0 gm TOP ASDIRECTED PRN PRN Reason: Perineal Comfort Measure Last Admin: 11/05/17 20:00 Dose: 1 can Docusate Sodium (Colace) 100 mg PO BID PRN PRN Reason: Constipation Emollient Ointment (Lansinoh Hpa) 0 gm TOP ASDIRECTED PRN PRN Reason: Sore Nipples Magnesium Sulfate 2 gm/ Premix 50 mls @ 25 mls/hr IV ONETIME ONE Stop: 11/07/17 11:53 Ibuprofen (Motrin) 600 mg PO Q4H PRN PRN Reason: Mild pain or fever Last Admin: 11/07/17 03:42 Dose: 600 mg Oxycodone/Acetaminophen (Percocet 325-5 Mg) 1 - 2 tab PO Q5H PRN PRN Reason: Pain Last Admin: 11/07/17 08:16 Dose: 2 tab Prenat Multivit/[place]/Iron/Folic Ac ( Plus Iron) 1 each PO DAILY ARLETTE Last Admin: 11/07/17 08:17 Dose: 1 each Witch Che (Tucks) 1 pad TOP ASDIRECTED PRN PRN Reason: Hemorrhoid pain Last Admin: 11/05/17 20:01 Dose: 1 applicful Discontinued Medications Acetaminophen (Tylenol) 650 mg PO Q4H PRN PRN Reason: Pain Last Admin: 11/04/17 22:20 Dose: 650 mg Carboprost Tromethamine (Hemabate Ds) Confirm Administered Dose 250 mcg .ROUTE .STK-MED ONE Stop: 11/05/17 19:13 Last Admin: 11/05/17 22:58 Dose: Not Given Cefazolin Sodium (Ancef) Confirm Administered Dose 2 gm .ROUTE .STK-MED ONE Stop: 11/05/17 08:16 Diphenhydramine HCl (Benadryl) 25 mg IVPUSH Q6H PRN PRN Reason: Pruritis Diphenoxylate HCl/Atropine (Lomotil 0.025-2.5 Mg) 2 tab PO ONETIME ONE Stop: 11/05/17 19:14 Last Admin: 11/05/17 22:58 Dose: Not Given Ephedrine Sulfate (Ephedrine Sulfate) 5 mg IVPUSH ASDIRECTED PRN PRN Reason: Hypotension Fentanyl (Sublimaze) 100 mcg EPIDUR ONETIME PRN PRN Reason: Pain Last Admin: 11/05/17 01:25 Dose: 100 mcg Fentanyl/Bupivacaine HCl (Fentanyl/Bupivacaine/Ns 2 Mcg-0.125% 100 Ml) 100 ml EPIDUR ASDIRECTED ARLETTE Last Admin: 11/05/17 15:50 Dose: 100 ml Lactated Ringer's (Ringers, Lactated) 1,000 mls @ 100 mls/hr IV ASDIRECTED ARLETTE Last Admin: 11/05/17 13:17 Dose: 100 mls/hr Oxytocin/Lactated Ringer's (Pitocin In Lr 10 Units/1,000 Ml) 10 unit in 1,000 mls @ 12 mls/hr IV TITRATE ARLETTE; Protocol Last Titration: 11/05/17 14:05 Dose: 8 munits/min, 48 mls/hr Oxytocin/Lactated Ringer's (Pitocin In Lr 10 Units/1,000 Ml) 10 unit in 1,000 mls @ 500 mls/hr IV .CONTINUOUS ARLETTE; Protocol Last Admin: 11/05/17 19:04 Dose: 500 mls/hr Magnesium Sulfate (Magnesium Sulfate 2 Gm In Water 50 Ml) 50 mls @ 25 mls/hr IV Q2H ARLETTE Stop: 11/05/17 07:29 Last Admin: 11/05/17 07:20 Dose: 25 mls/hr Lactated Ringer's (Ringers, Lactated) Confirm Administered Dose 2,000 mls @ as directed .ROUTE .STK-MED ONE Stop: 11/05/17 08:16 Magnesium Sulfate 4 gm/ Premix 100 mls @ 300 mls/hr IV ONETIME ONE Stop: 11/06/17 09:35 Last Admin: 11/06/17 10:36 Dose: 300 mls/hr Ketorolac Tromethamine (Toradol) Confirm Administered Dose 30 mg .ROUTE .STK- MED ONE Stop: 11/05/17 08:16 Lidocaine/Epinephrine (Xylocaine-Mpf 2%-Epi 1:200,000) Confirm Administered Dose 20 ml .ROUTE .STK-MED ONE Stop: 11/05/17 08:16 Magnesium Sulfate (Pharmacy To Dose - Magnesium Replacement) 0 dose .XX ASDIRECTED PRN PRN Reason: RX TO WATCH MAG LEVELS Misoprostol (Cytotec) 25 mcg VAG Q4HR ARLETTE Last Admin: 11/05/17 08:34 Dose: Not Given Misoprostol (Cytotec) Confirm Administered Dose 400 mcg .ROUTE .STK-MED ONE Stop: 11/05/17 18:33 Last Admin: 11/05/17 19:17 Dose: Not Given Misoprostol (Cytotec) 400 mcg PO ONETIME ONE Stop: 11/05/17 19:15 Last Admin: 11/05/17 18:40 Dose: 400 mcg Morphine Sulfate (Duramorph Pf) Confirm Administered Dose 10 mg .ROUTE .STK-MED ONE Stop: 11/05/17 08:16 Nalbuphine HCl (Nubain) 10 mg IVPUSH Q2H PRN PRN Reason: Pain (moderate 4-6) Nalbuphine HCl (Nubain) 10 mg IVPUSH Q2H PRN PRN Reason: Pain (moderate 4-6) Ondansetron HCl (Zofran) 4 mg IVPUSH Q4H PRN PRN Reason: Nausea/Vomiting Last Admin: 11/05/17 17:30 Dose: 4 mg Ondansetron HCl (Zofran) 4 mg IVPUSH ONETIME PRN PRN Reason: Nausea/Vomiting Ondansetron HCl (Zofran) Confirm Administered Dose 4 mg .ROUTE .STK-MED ONE Stop: 11/05/17 08:16 Oxytocin (Pitocin) Confirm Administered Dose 20 unit .ROUTE .STK-MED ONE Stop: 11/05/17 08:16 Potassium Chloride (Pharmacy To Dose - Potassium Replacement) 0 dose .XX ASDIRECTED PRN PRN Reason: RX TO WATCH K LEVELS Potassium Chloride (Klor-Con M20) 40 meq PO Q4H [facility] Stop: 11/05/17 08:01 Last Admin: 11/05/17 08:42 Dose: 40 meq Potassium Chloride (Klor-Con M20) 40 meq PO ONETIME ONE Stop: 11/06/17 09:36 Last Admin: 11/06/17 10:35 Dose: 40 meq Sodium Bicarbonate (Sodium Bicarbonate 8.4%) Confirm Administered Dose 50 meq .ROUTE .STK-MED ONE Stop: 11/05/17 08:16 Sodium Chloride (Saline Flush) 10 ml FLUSH ASDIRECTED PRN PRN Reason: Keep Vein Open
--- NOTE | 2017-11-07 12:50 | PCM.SN ---
- Free Text/Narrative Note: Patient not seen prior to DC, discussed plan of care with primary service. See previous note on 11/06/17.
--- NOTE | 2017-11-07 16:05 | PCM48HPAN ---
Post Anesthesia Note - EVALUATION WITHIN 48HRS OF ANESTHETIC Vital Signs in Normal Range: Yes Patient Participated in Evaluation: Yes Respiratory Function Stable: Yes Airway Patent: Yes Cardiovascular Function Stable: Yes Hydration Status Stable: Yes Pain Control Satisfactory: Yes Nausea and Vomiting Control Satisfactory: Yes Mental Status Recovered: Yes - COMMENTS/OBSERVATIONS Free Text/Narrative:: Patient discharged not complications noted.
== END 2017-11-07 11:30 | disposition home or self-care (01) | DRG 560 ==
LOC: JD.OB 20:04 → UNDOADMOB 20:04 → INTOOBSV 11-05 18:27 → OBSVTOIN 11-05 18:27 → JD.OB 11-05 18:27
PROVIDERS: ADMIT Obstetrics & Gynecology; ATTEND Obstetrics & Gynecology
PROC: 10E0XZZ Delivery of Products of Conception, External Approach (ICD-10-PCS; principal; 2017-11-05)
PROC: 0HQ9XZZ Repair Perineum Skin, External Approach (ICD-10-PCS; 2017-11-05)
DX: O75.89 Other specified complications of labor and delivery (principal); Z3A.39 39 weeks gestation of pregnancy; Z37.0 Single live birth; R00.8 Other abnormalities of heart beat; O62.2 Other uterine inertia; O70.0 First degree perineal laceration during delivery; E83.42 Hypomagnesemia
CPT/HCPCS: 01967; 36415; 51702; 59025; 59300; 59409; 80048; 80053; 83735; 84439; 84443; 85025; 93005; A9270-GY; J0690; J1885; J2270; J2405; J2590; J3010; J3475; J7120

== ENCOUNTER 2019-07-16 11:07 | Emergency (ER) | payer OTHER ==
--- NOTE | 2019-07-16 16:12 | EDM.PDOCBH ---
ED HPI GENERAL MEDICAL PROBLEM - General Chief Complaint: Behavioral/Psych Stated Complaint: SUICIDAL IDEATIONS Time Seen by Provider: 07/16/19 15:45 Source of Information: Reports: Patient, RN Notes Reviewed History Limitations: Reports: No Limitations - History of Present Illness INITIAL COMMENTS - FREE TEXT/NARRATIVE: Patient is a 33-year-old female who presents to the ED for the evaluation of suicidal ideations. Patient is 31 weeks , and she is a G7, P4. The patient notes that she was at Dr. Weeks's clinic for a checkup, and made the comment of just disappearing today. She was sent here for evaluation of suicidal ideations due to this fact. Patient does note that she has had depression in the past and has been on Lexapro, and states that this did seem to help quite a bit. The patient states that what she is feeling feels as if she has depression, but during . 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 She notes that her has made her aware of some mood swings she has been having, and she notes this is been going on since around Amna time. Patient denies any sort of plan for suicide, she has not had any previous attempts in the past as well. Patient is not hearing or seeing things that is not there, and she denies any other past medical issues. - Related Data Allergies Allergy/AdvReac Type Severity Reaction Status Date / Time No Known Allergies Allergy Verified 07/16/19 11:34 Home Meds: Home Meds Vit 10/Iron/Folic/Dha [Vitafol-OB + DHA] 1 each PO DAILY 11/04/17 [ History] Magnesium Amino Acid Chelate [Magnesium] 0 mg PO DAILY 07/16/19 [History] Past Medical History [employer] History: Reports: : 7 Para: 4 Psychiatric History: Reports: Depression - Past Surgical History HEENT Surgical History: Reports: Oral Surgery Social & Family History - Family History Family Medical History: Noncontributory - Tobacco Use Smoking Status *Q: Never Smoker - Caffeine Use Caffeine Use: Reports: Soda - Recreational Drug Use Recreational Drug Use: No ED ROS GENERAL - Review of Systems Review Of Systems: Comprehensive ROS is negative, except as noted in HPI. Constitutional: Denies: Fever, Chills Respiratory: Denies: Shortness of Breath Cardiovascular: Denies: Chest Pain GI/Abdominal: Denies: Constipation, Diarrhea, Nausea, Vomiting Psychiatric: Reports: Depression, Suicidal Ideation (states she wonders if her family would be better without her at times.). Denies: Hallucinations, Homicidal Ideation ED EXAM, BEHAVIORAL HEALTH - Physical Exam Exam: See Below Exam Limited By: No Limitations General Appearance: Alert, WD/WN, No Apparent Distress Eye Exam: Bilateral Eye: EOMI, Normal Inspection, PERRL Throat/Mouth: Normal Inspection, Normal Lips, Normal Teeth, Normal Gums, Normal Oropharynx, Normal Voice, No Airway Compromise Head: Atraumatic, Normocephalic Neck: Normal Inspection Respiratory/Chest: No Respiratory Distress, Lungs Clear, Normal Breath Sounds, No Accessory Muscle Use, Chest Non-Tender Cardiovascular: Normal Peripheral Pulses, Regular Rate, Rhythm, No Murmur GI/Abdominal: Normal Bowel Sounds, Soft, Non-Tender, No Distention, No Mass Extremities: Normal Inspection, Normal Capillary Refill Neurological: Alert, CN II-XII Intact, Normal Reflexes, No Motor/Sensory Deficits, Oriented x 3 Psychiatric: Alert, Oriented, Depressed Mood, Flat Affect, Withdrawn, Suicidal Thoughts (states she thinks that her family would be better off without her from time to time. No plan for suicide at this time.). No: Homicidal Thoughts, Suicidal Plan, Auditory Hallucinations, Visual Hallucinations, Threatening Behavior Skin Exam: Warm, Dry, Intact, Normal color, No rash COURSE, BEHAVIORAL HEALTH COMP - Course Vital Signs: Last Vital Signs Temp 98.2 F 07/16/19 11:31 Pulse 75 07/16/19 11:31 Resp 16 07/16/19 11:31 BP 115/67 07/16/19 11:31 Pulse Ox 95 07/16/19 11:31 Discharge vs Psych Eval/Treatment:: 07/16/19 16:16 Patient presents to the ED for the evaluation of suicidal ideations. Upon talking with the patient, I do not believe that she is actively suicidal at this time, and that she had a stressful weekend with 4 young children, with another one on the way. She states that Dr. Weeks did prescribe her some medications on outpatient basis, and I will have her obtain these medications and try these to see if this does not help her mood, and have her follow-up with [facility] tomorrow for possible counseling sessions and further psychiatric evaluation. I did go over the fact of if the patient is having any sort of increased suicidal ideations that we are here 03/01 and will be willing to reevaluate her for inpatient admission at any given time. She seems understanding of this at this time. Departure - Departure Time of Disposition: 16:18 Disposition: Home, Self-Care 01 Condition: Fair Clinical Impression: Passive suicidal ideations - Discharge Information *PRESCRIPTION DRUG MONITORING PROGRAM REVIEWED*: No *COPY OF PRESCRIPTION DRUG MONITORING REPORT IN PATIENT LAURA: No Instructions: Suicidal Feelings: How to Help Yourself Referrals: Rohith Weeks MD [Primary Care Provider] - Additional Instructions: You were evaluated in the ER today regarding your suicidal ideations. At this time, I do not believe you are a harm to yourself or others, and that you would be safe to discharge home and start on an outpatient regimen of medication as previously prescribed by your primary care provider. Highly and strongly recommend that you call [facility], to obtain further psychiatric evaluation for possible counseling tomorrow, their telephone number [phone]. Please obtain the medication As previously prescribed by your primary care provider, Wellbutrin, and take as directed, please note these meds can take up to 4 to 6 weeks to take full effect. If you have any increased suicidal ideation, suicidal thoughts, or develop a plan, please return to the ER immediately for evaluation. Please return to the ER at any time if your symptoms change or worsen. Sepsis Event Note - Evaluation Sepsis Screening Result: No Definite Risk - Focused Exam Vital Signs: Vital Signs Temp Pulse Resp BP Pulse Ox 07/16/19 11:31 98.2 F 75 16 115/67 95 Date Exam was Performed: 07/16/19 Time Exam was Performed: 16:04
== END 2019-07-16 16:48 | disposition home or self-care (01) ==
LOC: JD.ED 11:07
DX: O99.89 Other specified diseases and conditions complicating pregnancy, childbirth and the puerperium (principal); R45.851 Suicidal ideations; Z3A.31 31 weeks gestation of pregnancy
CPT/HCPCS: 99283; 99284

== ENCOUNTER 2019-09-17 07:11 | Inpatient (IN) | payer OTHER ==
[~2019-09-17 07:11] MED LIST: Lidocaine 1.5% with EPINEPHrine 1:200,000 5 ML Amp ONE
[2019-09-17] MEDS ORDERED: Nalbuphine 10 MG/ML Syringe IVPUSH PRN (07:53)
[2019-09-17] MEDS ORDERED: Sodium Chloride 0.9% 10 ML Syringe FLUSH PRN (07:53)
[2019-09-17] MEDS ORDERED: Oxytocin/Lactated Ringers 10 UNIT/1,000 ML BAG IV SCH ×3 (08:00→18:38)
[2019-09-17] MEDS ORDERED: Ampicillin 2 GM in Sodium Chloride 0.9% 100 ML IV ONE (08:00)
[2019-09-17] MEDS: Lactated Ringers 1,000 ML IV SCH ×3 (08:11→17:40)
--- NOTE | 2019-09-17 08:32 | PCM.LDHP ---
L&D History of Present Illness - General Date of Service: 09/17/19 Admit Problem/Dx: Patient Status Order with Admit Dx/Problem 09/17/19 07:54 Patient Status [ADT] Routine Admission Diagnosis/Problem Admission Diagnosis/Problem 40 weeks gestation of Source of Information: Patient History Limitations: Reports: No Limitations - History of Present Illness Introduction:: Tonia Reyes is a 33-year-old -0-2-4 at 40 weeks 0 days by a 7-week ultrasound ([facility] 09/17/2019) who presents for elective induction of labor. She reports that since she was last seen on 09/06/2019 she has had irregular [place] contractions and episodes with more frequent contractions but never consistent enough to come in to be evaluated. She denies any leaking of fluid or vaginal bleeding. She reports that she has had good movement. She reports that her mood has overall been well with use of Wellbutrin 150 mg daily. Quality: Reports: Pressure Associated Symptoms: Denies: vaginal bleeding, vaginal discharge, vaginal fluid Present Illness Comments:: Tonia Reyes is a 33-year-old -0-2-4 at 40 weeks 0 days by a 7-week ultrasound ([facility] 09/17/2019) who presents for elective induction of labor. She has had routine care with Dr. Weeks starting at 7 weeks gestational age. Her was overall uncomplicated. She received Tdap vaccine on 07/16. She had an elevated EPDS on 07/16/2019 at 26/30 and was started on Wellbutrin 150 mg daily at that time. She states that it has been working well for her and she does not have any anxiety or depressive symptoms at this time. This is complicated by: * Anxiety/depression -patient with elevated EPDS on 07/18/2019 and was started on Wellbutrin 150 mg daily. Reports this is been working well for her. 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 G2: 08/30/2012, 40 weeks gestational age, , female , 7 pounds 6 ounces , epidural for anesthesia, no complications G3: 12/30/2014, 40 weeks gestational age, , female , 7 pounds 14 ounces , epidural for anesthesia, no complications. G4: 11/05/2017, 39 weeks 1 day, , male , 8 pounds 7 ounces, epidural for anesthesia, no complications G5: Early SAB at unknown date G6: Early SAB at unknown date G7: Current labs Blood type: O+ Antibody screen: Negative First trimester hematocrit/hemoglobin: 39.9%/13.5 on 02/21/2019 Platelets: 234 on 02/21/2019 Urine culture: Group B strep positive bacteriuria with 60 CFU, remainder of bacteria suggestive of contamination Rubella status: Immune Hepatitis B surface antigen: Negative RPR: Negative HIV: Negative Gonorrhea: Negative Chlamydia: Negative Anatomy ultrasound: Normal anatomy, anterior placenta, no previa, 55th percentile One hour glucose tolerance test: 120 Second trimester hematocrit/hemoglobin: 31.5%/10.2 on 06/18/2019 Platelets: 238 on 06/18/2019 GBS status: GBS bacteriuria on early urine culture - Related Data Allergies/Adverse Reactions: Allergies Allergy/AdvReac Type Severity Reaction Status Date / Time No Known Allergies Allergy Verified 09/17/19 07:55 Home Medications: Home Meds Vit 10/Iron/Folic/Dha [Vitafol-OB + DHA] 1 each PO DAILY 11/04/17 [ History] Magnesium Amino Acid Chelate [Magnesium] 0 mg PO DAILY 07/16/19 [History] Ferrous Sulfate [Iron] 325 mg PO DAILY 09/17/19 [History] buPROPion HCl [Bupropion Xl] 150 mg PO BEDTIME 09/17/19 [History] Past Medical History Cardiovascular History: Reports: None Respiratory History: Reports: None Gastrointestinal History: Reports: None Genitourinary History: Reports: None EVENT ORGANIZER History: Reports: : 7 Para: 4 Musculoskeletal History: Reports: None Neurological History: Reports: None Psychiatric History: Reports: Anxiety, Depression Endocrine/Metabolic History: Reports: None Hematologic History: Reports: None Immunologic History: Reports: None Oncologic (Cancer) History: Reports: None Dermatologic History: Reports: None - Infectious Disease History Infectious Disease History: Reports: None - Past Surgical History HEENT Surgical History: Reports: Oral Surgery Social & Family History - Family History Family Medical History: Noncontributory - Tobacco Use Smoking Status *Q: Never Smoker - Tobacco Core Measures Tobacco Use/Smoking Within Last 30 Days: No Smokeless Tobacco Use in Last 30 Days: No - Caffeine Use Caffeine Use: Reports: Soda - Alcohol Use Alcohol Use History: No - Recreational Drug Use Recreational Drug Use: No Drug Use in Last 12 Months: No - Living Situation & Occupation Living situation: Reports: , with Spouse, with Family H&P Review of Systems - Review of Systems: Review Of Systems: See Below General: Denies: Fever, Chills, Malaise, Weakness, Fatigue HEENT: Reports: Headaches (mild). Denies: Rhinitis, Post Nasal Drip, Sinus Congestion, Sore Throat, Visual Changes Pulmonary: Denies: Shortness of Breath, Wheezing, Pleuritic Chest Pain, Cough Cardiovascular: Denies: Chest Pain, Palpitations, Dyspnea on Exertion, Orthopnea Gastrointestinal: Denies: Abdominal Pain, Constipation, Diarrhea, Nausea, Vomiting Genitourinary: Denies: Dysuria, Frequency, Burning, Pain, Urgency Musculoskeletal: Reports: Back Pain (and hip pain of ) Skin: Denies: Rash, Lesions Psychiatric: Reports: Depression (no active symptoms, well controlled on Wellbutrin), Anxiety (no active symptoms, well controlled on Wellbutrin) L&D Exam - Exam Exam: See Below - Vital Signs Weight: 96.887 kg - OB Specific Contraction Duration (sec): 60 Contraction Frequency (min): Irregular Contraction Intensity: Mild to Moderate Movement: Active Heart Tones: Present Heart Tones per Min: 135 (+15 x 15 accelerations, no decelerations) Heart Rate (FHR) Variability: Moderate (6-25 bmp) Presentation: Vertex Estimated Weight: 7.5 to 8 pounds by Dl - Mc Score Mc Score Cervix Position: Posterior Mc Score Consistency: Soft Mc Score Effacement: 31-50% (50) Mc Score Dilation: 3-4 cm (3 cm) Mc Score Infant's Station: -3 Mc Score Total: 5 - Exam General: Alert, Oriented HEENT: Conjunctiva Clear, EOMI Neck: Supple, Trachea Midline Lungs: Clear to Auscultation, Normal Respiratory Effort Cardiovascular: Regular Rate, Regular Rhythm GI/Abdominal Exam: Soft, Non-Tender, No Distention. No: Guarding, Rigid, Rebound Extremities: Normal Inspection, No Pedal Edema Skin: Warm, Dry, Intact Psychiatric: Alert, Normal Affect, Normal Mood - Problem List (1) Depression SNOMED Code(s): 57177401 ICD Code: F32.9 - MAJOR DEPRESSIVE DISORDER, SINGLE EPISODE, UNSPECIFIED Status: Acute Current Visit: Yes (2) Anemia affecting SNOMED Code(s): 29208313 ICD Code: O99.019 - ANEMIA COMPLICATING , UNSPECIFIED TRIMESTER Status: Acute Current Visit: Yes (3) 40 weeks gestation of SNOMED Code(s): 43740552 ICD Code: Z3A.40 - 40 WEEKS GESTATION OF Status: Acute Current Visit: No Problem List Initiated/Reviewed/Updated: Yes Orders Last 24hrs: Active Orders 24 hr Category Date Time Status Patient Status [ADT] Routine ADT 09/17/19 07:54 Ordered Activity as Tolerated [RC] PFP Care 09/17/19 07:54 Ordered Communication Order [RC] ASDIRECTED Care 09/17/19 07:54 Ordered Heart Tones [RC] ASDIRECTED Care 09/17/19 07:54 Ordered Non Stress Test [RC] PER UNIT ROUTINE Care 09/17/19 07:54 Ordered Notify Provider Vital Signs [RC] PRN Care 09/17/19 07:55 Ordered Notify Provider [RC] PFP Care 09/17/19 07:54 Ordered Notify Provider [RC] PRN Care 09/17/19 07:54 Ordered Peripheral IV Care [RC] . DIRECTED Care 09/17/19 07:54 Ordered Pump Management, Intrathecal [RC] ASDIRECTED Care 09/17/19 07:55 Ordered Vital Signs [RC] PER UNIT ROUTINE Care 09/17/19 07:54 Ordered Regular Diet [DIET] Diet 09/17/19 Breakfast Ordered CBC WITH AUTO DIFF [HEME] Routine Lab 09/17/19 07:53 Ordered RAPID PLASMA REAGIN,RPR [CHEM] Routine Lab 09/17/19 07:54 Ordered Ampicillin 1 gm Med 09/17/19 08:00 Ordered Sodium Chloride 0.9% [Normal Saline] 100 ml IV Q4H Ampicillin 2 gm Med 09/17/19 07:53 Ordered Sodium Chloride 0.9% [Normal Saline] 100 ml IV ONETIME Lactated Ringers [Ringers, Lactated] 1,000 ml Med 09/17/19 08:00 Ordered IV ASDIRECTED Nalbuphine [Nubain] Med 09/17/19 07:53 Ordered 10 mg IVPUSH Q2H PRN Oxytocin/Lactated Ringers [Pitocin in LR 10 Units/1,000 Med 09/17/19 08:00 Ordered ML] 10 unit in 1,000 ml IV .CONTINUOUS Oxytocin/Lactated Ringers [Pitocin in LR 10 Units/1,000 Med 09/17/19 10:30 Ordered ML] 10 unit in 1,000 ml IV TITRATE Sodium Chloride 0.9% [Saline Flush] Med 09/17/19 07:53 Ordered 10 ml FLUSH ASDIRECTED PRN buPROPion [Wellbutrin SR] Med 09/17/19 09:00 Ordered 150 mg PO DAILY Electronic Heart Tones Ext w TOCO [WOMSER] Oth 09/17/19 07:54 Ordered Routine Electronic Heart Tones Internal [WOMSER] Per Unit Oth 09/17/19 07:54 Ordered Routine Peripheral IV Insertion Adult [OM.PC] Routine Oth 09/17/19 07:54 Ordered Resuscitation Status Routine Resus Stat 09/17/19 07:53 Ordered Medication Orders Bupropion HCl (Wellbutrin Xl) 150 mg PO BEDTIME ARLETTE Ampicillin Sodium 2 gm/ Sodium (Chloride) 100 mls @ 200 mls/hr IV ONETIME ONE Stop: 09/17/19 08:29 Last Admin: 09/17/19 08:12 Dose: 200 mls/hr Ampicillin Sodium 1 gm/ Sodium (Chloride) 100 mls @ 200 mls/hr IV Q4H ARLETTE Lactated Ringer's (Ringers, Lactated) 1,000 mls @ 100 mls/hr IV ASDIRECTED ARLETTE Last Admin: 09/17/19 08:11 Dose: 100 mls/hr Oxytocin/Lactated Ringer's (Pitocin In Lr 10 Units/1,000 Ml) 10 unit in 1,000 mls @ 12 mls/hr IV TITRATE ARLETTE; Protocol Oxytocin/Lactated Ringer's (Pitocin In Lr 10 Units/1,000 Ml) 10 unit in 1,000 mls @ 100 mls/hr IV .CONTINUOUS RALETTE; Protocol Nalbuphine HCl (Nubain) 10 mg IVPUSH Q2H PRN PRN Reason: Pain Sodium Chloride (Saline Flush) 10 ml FLUSH ASDIRECTED PRN PRN Reason: Keep Vein Open Assessment/Plan Comment:: Refer to observation for elective induction of labor Start Pitocin for induction of labor approximately 2 to 2.5 hours after ampicillin for GBS prophylaxis Continuous monitoring Place IV and have Lactated Ringer's at 125 ml/hr May have small amounts of regular diet Activity as tolerated May have epidural as desired Plans to breast-feed after delivery Start on ampicillin 2 g now and have 1 g every 4 hours after for GBS prophylaxis Anticipate vaginal delivery unless otherwise indicated Bo Herrera MD 8:41 AM 09/17/2019
[2019-09-17] MEDS ORDERED: Ondansetron 4 MG/2 ML SDV IVPUSH PRN (08:47)
[2019-09-17] MEDS ORDERED: ePHEDrine 50 MG/ML SDV IVPUSH PRN (08:47)
[2019-09-17] MEDS ORDERED: fentaNYL 100 MCG/2 ML SDV EPIDUR PRN (08:47)
[2019-09-17] MEDS ORDERED: Bupivacaine/fentaNYL/NS 100 ML Bag EPIDUR SCH (09:00)
--- NOTE | 2019-09-17 09:09 | PCM.PREANE ---
Preanesthetic Assessment - Procedure Proposed Procedure: EPIDURAL PLACEMENT - Anesthesia/Transfusion/Family Hx Anesthesia History: Prior Anesthesia Without Reaction Family History of Anesthesia Reaction: No Transfusion History: No Prior Transfusion(s) Intubation History: Unknown - Review of Systems General: No Symptoms Pulmonary: No Symptoms Cardiovascular: No Symptoms, Palpitations (history of palpiations none with this with extra magnesium supplements noted) Gastrointestinal: No Symptoms (GERD) Neurological: No Symptoms Other: Reports: Easy Bruising, Depression, Anxiety - Physical Assessment NPO Status Date: 09/17/19 NPO Status Time: 06:30 Vital Signs: HR: 95 BP: 115/68 Resp: 15 Sat: 99% Temp: 36.5 Height: 1.63 m Weight: 96.887 kg ASA Class: 2 Mental Status: Alert & Oriented x3 Airway Class: Mallampati = 2 Dentition: Reports: Normal Dentition, Caries Thyro-Mental Finger Breadths: 3 Mouth Opening Finger Breadths: 3 ROM/Head Extension: Full Lungs: Clear to Auscultation, Normal Respiratory Effort Cardiovascular: Regular Rate, Regular Rhythm, No Murmurs - Lab Values: Laboratory Last Values WBC 8.41 K/mm3 (3.98-10.04) 09/17/19 08:15 RBC 4.38 M/mm3 (3.98-5.22) 09/17/19 08:15 Hgb 11.2 gm/dl (11.2-15.7) 09/17/19 08:15 Hct 36.5 % (34.1-44.9) 09/17/19 08:15 MCV 83.3 fl (79.4-94.8) 09/17/19 08:15 MCH 25.6 pg (25.6-32.2) 09/17/19 08:15 MCHC 30.7 g/dl (32.2-35.5) L 09/17/19 08:15 RDW Std Deviation 56.3 fL (36.4-46.3) H 09/17/19 08:15 Plt Count 256 K/mm3 (182-369) 09/17/19 08:15 MPV 9.9 fl (9.4-12.3) 09/17/19 08:15 Neut % (Auto) 78.0 % (34.0-71.1) H 09/17/19 08:15 Lymph % (Auto) 15.0 % (19.3-51.7) L 09/17/19 08:15 [place] % (Auto) 5.7 % (4.7-12.5) 09/17/19 08:15 Eos % (Auto) 0.8 (0.7-5.8) 09/17/19 08:15 Baso % (Auto) 0.1 % (0.1-1.2) 09/17/19 08:15 Neut # (Auto) 6.56 K/mm3 (1.56-6.13) H 09/17/19 08:15 Lymph # (Auto) 1.26 K/mm3 (1.18-3.74) 09/17/19 08:15 [place] # (Auto) 0.48 K/mm3 (0.24-0.36) H 09/17/19 08:15 Eos # (Auto) 0.07 K/mm3 (0.04-0.36) 09/17/19 08:15 Baso # (Auto) 0.01 K/mm3 (0.01-0.08) 09/17/19 08:15 Above labs reviewed and noted and within acceptable ranges to proceed with epidural if desired. - Allergies Allergies/Adverse Reactions: Allergies Allergy/AdvReac Type Severity Reaction Status Date / Time No Known Allergies Allergy Verified 09/17/19 07:55 - Anesthesia Plan Pre-Op Medication Ordered: None - Acknowledgements Anesthesia Type Planned: Epidural Pt an Appropriate Candidate for the Planned Anesthesia: Yes Alternatives and Risks of Anesthesia Discussed w Pt/Guardian: Yes Pt/Guardian Understands and Agrees with Anesthesia Plan: Yes PreAnesthesia Questionnaire Cardiovascular History: Reports: None Respiratory History: Reports: None Gastrointestinal History: Reports: None Genitourinary History: Reports: None 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: Musculoskeletal History: Reports: None Neurological History: Reports: None Psychiatric History: Reports: Anxiety, Depression Endocrine/Metabolic History: Reports: None Hematologic History: Reports: None Immunologic History: Reports: None Oncologic (Cancer) History: Reports: None Dermatologic History: Reports: None - Infectious Disease History Infectious Disease History: Reports: None - Past Surgical History HEENT Surgical History: Reports: Oral Surgery - SUBSTANCE USE Smoking Status *Q: Never Smoker Recreational Drug Use History: No - HOME MEDS Home Medications: Home Meds Vit 10/Iron/Folic/Dha [Vitafol-OB + DHA] 1 each PO DAILY 11/04/17 [ History] Magnesium Amino Acid Chelate [Magnesium] 0 mg PO DAILY 07/16/19 [History] Ferrous Sulfate [Iron] 325 mg PO DAILY 09/17/19 [History] buPROPion HCl [Bupropion Xl] 150 mg PO BEDTIME 09/17/19 [History] - CURRENT (IN HOUSE) MEDS Current Meds: Current Medications Bupropion HCl (Wellbutrin Xl) 150 mg PO BEDTIME ARLETTE Ephedrine Sulfate (Ephedrine Sulfate) 5 mg IVPUSH ASDIRECTED PRN PRN Reason: Hypotension Fentanyl (Sublimaze) 100 mcg EPIDUR Q3H PRN PRN Reason: Pain Fentanyl/Bupivacaine HCl (Fentanyl/Bupivacaine/Ns 2 Mcg-0.125% 100 Ml) 100 ml EPIDUR ASDIRECTED ARLETTE Ampicillin Sodium 1 gm/ Sodium (Chloride) 100 mls @ 200 mls/hr IV Q4H ARLETTE Lactated Ringer's (Ringers, Lactated) 1,000 mls @ 100 mls/hr IV ASDIRECTED ARLETTE Last Admin: 09/17/19 08:11 Dose: 100 mls/hr Oxytocin/Lactated Ringer's (Pitocin In Lr 10 Units/1,000 Ml) 10 unit in 1,000 mls @ 12 mls/hr IV TITRATE ARLETTE; Protocol Oxytocin/Lactated Ringer's (Pitocin In Lr 10 Units/1,000 Ml) 10 unit in 1,000 mls @ 100 mls/hr IV .CONTINUOUS ARLETTE; Protocol Nalbuphine HCl (Nubain) 10 mg IVPUSH Q2H PRN PRN Reason: Pain Ondansetron HCl (Zofran) 4 mg IVPUSH ONETIME PRN PRN Reason: Nausea/Vomiting Sodium Chloride (Saline Flush) 10 ml FLUSH ASDIRECTED PRN PRN Reason: Keep Vein Open Discontinued Medications Ampicillin Sodium 2 gm/ Sodium (Chloride) 100 mls @ 200 mls/hr IV ONETIME ONE Stop: 09/17/19 08:29 Last Admin: 09/17/19 08:12 Dose: 200 mls/hr
[2019-09-17] MEDS: Ampicillin 1 GM in Sodium Chloride 0.9% 100 ML IV SCH ×2 (12:36→17:35)
--- NOTE | 2019-09-17 16:23 | PCM.PNLD ---
Labor Progress Note - VS & Meds Vital Signs: Last Vital Signs Temp 36.5 C 09/17/19 07:54 Pulse 95 09/17/19 07:54 Resp 15 09/17/19 07:54 BP 115/68 09/17/19 07:54 Pulse Ox Active Medications: Current Medications Bupropion HCl (Wellbutrin Xl) 150 mg PO BEDTIME ARLETTE Ephedrine Sulfate (Ephedrine Sulfate) 5 mg IVPUSH ASDIRECTED PRN PRN Reason: Hypotension Fentanyl (Sublimaze) 100 mcg EPIDUR Q3H PRN PRN Reason: Pain Last Admin: 09/17/19 12:36 Dose: 100 mcg Fentanyl/Bupivacaine HCl (Fentanyl/Bupivacaine/Ns 2 Mcg-0.125% 100 Ml) 100 ml EPIDUR ASDIRECTED ARLETTE Last Admin: 09/17/19 12:37 Dose: 100 ml Ampicillin Sodium 1 gm/ Sodium (Chloride) 100 mls @ 200 mls/hr IV Q4H ARLETTE Last Admin: 09/17/19 12:36 Dose: 200 mls/hr Lactated Ringer's (Ringers, Lactated) 1,000 mls @ 100 mls/hr IV ASDIRECTED ARLETTE Last Admin: 09/17/19 13:42 Dose: 100 mls/hr Oxytocin/Lactated Ringer's (Pitocin In Lr 10 Units/1,000 Ml) 10 unit in 1,000 mls @ 12 mls/hr IV TITRATE ARLETTE; Protocol Last Titration: 09/17/19 13:43 Dose: 8 munits/min, 48 mls/hr Oxytocin/Lactated Ringer's (Pitocin In Lr 10 Units/1,000 Ml) 10 unit in 1,000 mls @ 100 mls/hr IV .CONTINUOUS ARLETTE; Protocol Nalbuphine HCl (Nubain) 10 mg IVPUSH Q2H PRN PRN Reason: Pain Ondansetron HCl (Zofran) 4 mg IVPUSH ONETIME PRN PRN Reason: Nausea/Vomiting Sodium Chloride (Saline Flush) 10 ml FLUSH ASDIRECTED PRN PRN Reason: Keep Vein Open Discontinued Medications Ampicillin Sodium 2 gm/ Sodium (Chloride) 100 mls @ 200 mls/hr IV ONETIME ONE Stop: 09/17/19 08:29 Last Admin: 09/17/19 08:12 Dose: 200 mls/hr - Uterine Contractions Uterine Monitoring Mode: External [place] Contraction Frequency (min): 2-4 Contraction Duration (sec): 60 Contraction Intensity: Moderate to Strong Uterine Resting Tone: Soft - Monitoring Monitor Mode: Doppler/Auscultation Heart Rate (FHR) Baseline: 140 Heart Rate (FHR) Per Doppler: 140 Heart Rate (FHR) Variability: Moderate (6-25 bmp) Accelerations: Present, 15x15 Decelerations: None Strip Review: Category I - Vaginal Exam Dilation (cm): 5 Effacement (Percent): 70 Station: -2 Cervical Position: Anterior Sterile Vaginal Exam Performed By: Bo Herrera Vaginal Exam Comment: Artificial rupture membranes performed with [place]. Return of light meconium stained fluid. Bulb Inspector to be notified. - Labor Progress (Free Text) Labor Progress: Patient making good progress at this time. Received epidural for anesthesia. Continue Pitocin for induction of labor. Continue ampicillin for GBS prophylaxis Routine vitals Continuous monitoring while receiving Pitocin for induction Notify drawing checker of light meconium stained fluid Anticipate vaginal delivery unless otherwise indicated Late entry note from 1:30 PM on 09/17/2019 when patient had artificial rupture membranes. Bo Herrera MD 4:23 PM 09/17/2019
--- NOTE | 2019-09-17 16:25 | PCM.PNLD ---
Labor Progress Note - VS & Meds Vital Signs: Last Vital Signs Temp 36.5 C 09/17/19 07:54 Pulse 95 09/17/19 07:54 Resp 15 09/17/19 07:54 BP 115/68 09/17/19 07:54 Pulse Ox Active Medications: Current Medications Bupropion HCl (Wellbutrin Xl) 150 mg PO BEDTIME ARLETTE Ephedrine Sulfate (Ephedrine Sulfate) 5 mg IVPUSH ASDIRECTED PRN PRN Reason: Hypotension Fentanyl (Sublimaze) 100 mcg EPIDUR Q3H PRN PRN Reason: Pain Last Admin: 09/17/19 12:36 Dose: 100 mcg Fentanyl/Bupivacaine HCl (Fentanyl/Bupivacaine/Ns 2 Mcg-0.125% 100 Ml) 100 ml EPIDUR ASDIRECTED ARLETTE Last Admin: 09/17/19 12:37 Dose: 100 ml Ampicillin Sodium 1 gm/ Sodium (Chloride) 100 mls @ 200 mls/hr IV Q4H ARLETTE Last Admin: 09/17/19 12:36 Dose: 200 mls/hr Lactated Ringer's (Ringers, Lactated) 1,000 mls @ 100 mls/hr IV ASDIRECTED ARLETTE Last Admin: 09/17/19 13:42 Dose: 100 mls/hr Oxytocin/Lactated Ringer's (Pitocin In Lr 10 Units/1,000 Ml) 10 unit in 1,000 mls @ 12 mls/hr IV TITRATE ARLETTE; Protocol Last Titration: 09/17/19 13:43 Dose: 8 munits/min, 48 mls/hr Oxytocin/Lactated Ringer's (Pitocin In Lr 10 Units/1,000 Ml) 10 unit in 1,000 mls @ 100 mls/hr IV .CONTINUOUS ARLETTE; Protocol Nalbuphine HCl (Nubain) 10 mg IVPUSH Q2H PRN PRN Reason: Pain Ondansetron HCl (Zofran) 4 mg IVPUSH ONETIME PRN PRN Reason: Nausea/Vomiting Sodium Chloride (Saline Flush) 10 ml FLUSH ASDIRECTED PRN PRN Reason: Keep Vein Open Discontinued Medications Ampicillin Sodium 2 gm/ Sodium (Chloride) 100 mls @ 200 mls/hr IV ONETIME ONE Stop: 09/17/19 08:29 Last Admin: 09/17/19 08:12 Dose: 200 mls/hr - Uterine Contractions Uterine Monitoring Mode: External [place] Contraction Frequency (min): 2-3 Contraction Duration (sec): 60-75 Contraction Intensity: Moderate to Strong Uterine Resting Tone: Soft - Monitoring Monitor Mode: Doppler/Auscultation Heart Rate (FHR) Baseline: 130 Heart Rate (FHR) Per Doppler: 130 Heart Rate (FHR) Variability: Moderate (6-25 bmp) Accelerations: Present, 15x15 Decelerations: Early, Intermittent (<50% x 20 min) Strip Review: Category I - Vaginal Exam Dilation (cm): 6 Effacement (Percent): 80 Station: -1 Cervical Position: Anterior Sterile Vaginal Exam Performed By: Bo Herrera - Labor Progress (Free Text) Labor Progress: Patient continuing to progress at this time. Epidural continues to work well for anesthesia. Continue ampicillin for GBS prophylaxis Continue Pitocin for induction of labor Routine vitals Anticipate vaginal delivery unless otherwise indicated Bo Herrera MD 4:25 PM 09/17/2019
[2019-09-17] MEDS ORDERED: Hydrocortisone Acetate 25 MG Supp RECTAL PRN (18:38)
[2019-09-17] MEDS ORDERED: Docusate Sodium 100 MG Cap PO PRN (18:38)
[2019-09-17] MEDS ORDERED: Magnesium Hydroxide 400 MG/5 ML Susp 30 ML Cup PO PRN (18:38)
[2019-09-17] MEDS ORDERED: Witch Hazel Medicated Pads 40/Jar TOP PRN (18:38)
[2019-09-17] MEDS ORDERED: Benzocaine/Menthol 20%-0.5% Spray 56 GM Canister TOP PRN (18:38)
--- NOTE | 2019-09-17 18:41 | PCM.DEL ---
L & D Note - General Info Date of Service: 09/17/19 Mother's Due Date: 09/17/19 - Delivery Note Labor: Augmented by ARM, Augmented by Oxytocin, Induced by Oxytocin Delivery Outcome: Livebirth Infant Delivery Method: Spontaneous Vaginal Delivery-Single Presentation: Left Occiput Anterior (TARIK) Nuchal Cord: Present (single, not reduced prior to delivery) Anesthesia Type: Epidural Amniotic Fluid Description: Meconium Stained (light) Episiotomy Type: None Laceration: Vaginal (left vaginal abrasion, hemostatic, not repaired) Placenta: Intact, Spontaneous Cord: 3 Vessels Estimated Blood Loss: 200 Resuscitation Needed: Yes [place]: Suctioned, Bulb Syringe, Stimulated, Warmed, [place] Used, Warmer Used Provider: Bo Herrera Score 1 min: 8 Score 5 min: 9 Second Stage Interventions: Reports: Pushing Effectively, Pushing, Stirrups/Leg Supports Delivery Comments (Free Text/Narrative):: Stage I: Kenzie Reyes was admitted for elective induction of labor. On admission her cervix was dilated to 3 cm. She was GBS positive and was started on ampicillin for GBS prophylaxis. She received a total of 3 doses prior to delivery. She was started on Pitocin for induction of labor. She was given an epidural for anesthesia. She had artificial rupture of membranes with return of light meconium stained fluid. She continued to make progress throughout the induction and progressed to complete and pushing. Stage II: On 09/17/2019 she had a normal vaginal delivery of a live female infant at 18:08. Apgars of 8 & 9. Weight of 4030 g (8 lbs 14.2 oz). Length of 21 inches. There was a single nuchal cord that was not able to be reduced prior to delivery and was delivered through. This was reduced after delivery of the . Infant was delivered in TARIK position. The cord was doubly clamped and cut by myself. Infant was placed on mother's abdomen and then taken to the warmer for additional resuscitation. Stage III: She had a spontaneous delivery of an intact placenta in [place] presentation. Three vessel cord. She was given pitocin and fundal massage. She had a left vaginal abrasion that was hemostatic and not repaired. Mom and baby were stable to recovery. EBL of 200 mL. Bo Herrera MD 6:34 PM 09/17/2019 Induction Criteria - Mc Score Mc Score Dilation: 3-4 cm Mc Score Effacement: 40-50% Mc Score Infant's Station: -3 Mc Score Consistency: Soft Mc Score Cervix Position: Posterior Mc Score Total: 5 Mc Score Presenting Part: Reports: Cephalic - Induction Gestational Age >/= 39 wks: Yes Estimated Pelvis: Reports: Adequate Reassuring Monitoring Strip: Yes Absence of Tachy Systole: Yes - Augmentation Estimated Pelvis: Reports: Adequate Weight Estimated:: Reports: AGA Reassuring Monitoring Strip: Yes Absence of Tachy Systole: Yes - General Info Date of Service: 09/17/19 - Patient Data Vitals - Most Recent: Last Vital Signs Temp 36.5 C 09/17/19 07:54 Pulse 95 09/17/19 07:54 Resp 15 09/17/19 07:54 BP 115/68 09/17/19 07:54 Pulse Ox Weight - Most Recent: 96.887 kg I&O - Last 24 Hours: Intake & Output 09/17/19 09/17/19 09/17/19 06:59 14:59 22:59 Intake Total 100 Balance 100 Lab Results Last 24 Hours: Laboratory Results - last 24 hr 09/17/19 09/17/19 Range/Units 08:15 08:15 WBC 8.41 (3.98-10.04) K/mm3 RBC 4.38 (3.98-5.22) M/mm3 Hgb 11.2 (11.2-15.7) gm/dl Hct 36.5 (34.1-44.9) % MCV 83.3 (79.4-94.8) fl MCH 25.6 (25.6-32.2) pg MCHC 30.7 L (32.2-35.5) g/dl RDW Std Deviation 56.3 H (36.4-46.3) fL Plt Count 256 (182-369) K/mm3 MPV 9.9 (9.4-12.3) fl Neut % (Auto) 78.0 H (34.0-71.1) % Lymph % (Auto) 15.0 L (19.3-51.7) % [place] % (Auto) 5.7 (4.7-12.5) % Eos % (Auto) 0.8 (0.7-5.8) Baso % (Auto) 0.1 (0.1-1.2) % Neut # (Auto) 6.56 H (1.56-6.13) K/mm3 Lymph # (Auto) 1.26 (1.18-3.74) K/mm3 [place]lin # (Auto) 0.48 H (0.24-0.36) K/mm3 Eos # (Auto) 0.07 (0.04-0.36) K/mm3 Baso # (Auto) 0.01 (0.01-0.08) K/mm3 RPR Non-reactive (NONREACTIVE) Med Orders - Current: Current Medications Bupropion HCl (Wellbutrin Xl) 150 mg PO BEDTIME ARLETTE Ephedrine Sulfate (Ephedrine Sulfate) 5 mg IVPUSH ASDIRECTED PRN PRN Reason: Hypotension Fentanyl (Sublimaze) 100 mcg EPIDUR Q3H PRN PRN Reason: Pain Last Admin: 09/17/19 12:36 Dose: 100 mcg Fentanyl/Bupivacaine HCl (Fentanyl/Bupivacaine/Ns 2 Mcg-0.125% 100 Ml) 100 ml EPIDUR ASDIRECTED ARLETTE Last Admin: 09/17/19 12:37 Dose: 100 ml Ampicillin Sodium 1 gm/ Sodium (Chloride) 100 mls @ 200 mls/hr IV Q4H ARLETTE Last Admin: 09/17/19 17:35 Dose: 200 mls/hr Lactated Ringer's (Ringers, Lactated) 1,000 mls @ 100 mls/hr IV ASDIRECTED ARLETTE Last Admin: 09/17/19 17:40 Dose: 100 mls/hr Oxytocin/Lactated Ringer's (Pitocin In Lr 10 Units/1,000 Ml) 10 unit in 1,000 mls @ 12 mls/hr IV TITRATE ARLETTE; Protocol Last Titration: 09/17/19 13:43 Dose: 8 munits/min, 48 mls/hr Oxytocin/Lactated Ringer's (Pitocin In Lr 10 Units/1,000 Ml) 10 unit in 1,000 mls @ 100 mls/hr IV .CONTINUOUS ARLETTE; Protocol Nalbuphine HCl (Nubain) 10 mg IVPUSH Q2H PRN PRN Reason: Pain Ondansetron HCl (Zofran) 4 mg IVPUSH ONETIME PRN PRN Reason: Nausea/Vomiting Sodium Chloride (Saline Flush) 10 ml FLUSH ASDIRECTED PRN PRN Reason: Keep Vein Open Discontinued Medications Ampicillin Sodium 2 gm/ Sodium (Chloride) 100 mls @ 200 mls/hr IV ONETIME ONE Stop: 09/17/19 08:29 Last Admin: 09/17/19 08:12 Dose: 200 mls/hr - Problem List & Annotations (1) Depression SNOMED Code(s): 82585599 Code(s): F32.9 - MAJOR DEPRESSIVE DISORDER, SINGLE EPISODE, UNSPECIFIED Status: Acute Current Visit: Yes (2) Anemia affecting SNOMED Code(s): 41642715 Code(s): O99.019 - ANEMIA COMPLICATING , UNSPECIFIED TRIMESTER Status: Acute Current Visit: Yes (3) 40 weeks gestation of SNOMED Code(s): 14982749 Code(s): Z3A.40 - 40 WEEKS GESTATION OF Status: Acute Current Visit: No (4) Vaginal delivery SNOMED Code(s): 320245085 Code(s): O80 - ENCOUNTER FOR FULL-TERM UNCOMPLICATED DELIVERY Status: Acute Current Visit: Yes (5) Meconium in amniotic fluid affecting management of mother SNOMED Code(s): 33557152 Code(s): O36.8990 - MATERNAL CARE FOR OTH PROBLEMS, UNSP TRIMESTER, UNSP Status: Acute Current Visit: Yes - Problem List Review Problem List Initiated/Reviewed/Updated: Yes - My Orders Last 24 Hours: My Active Orders 09/17/19 07:53 Nalbuphine [Nubain] 10 mg IVPUSH Q2H PRN Sodium Chloride 0.9% [Saline Flush] 10 ml FLUSH ASDIRECTED PRN Resuscitation Status Routine 09/17/19 07:54 Patient Status [ADT] Routine Activity as Tolerated [RC] PFP Communication Order [RC] ASDIRECTED Notify Provider [RC] PFP Notify Provider [RC] PRN Peripheral IV Care [RC] . DIRECTED Vital Signs [RC] PER UNIT ROUTINE Electronic Heart Tones Ext w TOCO [WOMSER] Routine Electronic Heart Tones Internal [WOMSER] Per Unit Routine Peripheral IV Insertion Adult [OM.PC] Routine 09/17/19 07:55 Notify Provider Vital Signs [RC] PRN Pump Management, Intrathecal [RC] ASDIRECTED 09/17/19 08:00 Lactated Ringers [Ringers, Lactated] 1,000 ml IV ASDIRECTED Oxytocin/Lactated Ringers [Pitocin in LR 10 Units/1,000 ML] 10 unit in 1,000 ml IV .CONTINUOUS 09/17/19 10:30 Oxytocin/Lactated Ringers [Pitocin in LR 10 Units/1,000 ML] 10 unit in 1,000 ml IV TITRATE 09/17/19 12:00 Ampicillin 1 gm Sodium Chloride 0.9% [Normal Saline] 100 ml IV Q4H 09/17/19 18:25 Patient Status Manage Transfer [TRANSFER] Routine 09/17/19 21:00 buPROPion [Wellbutrin XL] 150 mg PO BEDTIME 09/17/19 Breakfast Regular Diet [DIET] - Plan Plan:: Admit to inpatient following normal spontaneous vaginal delivery Continue Pitocin per unit protocol following delivery of placenta and lactated Ringer's until tolerating regular diet Regular diet Vitals per unit routine Ibuprofen and Tylenol for pain control Assist with breast-feeding as needed Continue to monitor lochia Continue Wellbutrin 150 mg daily for treatment of her depression Anticipate discharge home on day #1 Bo Herrera MD 6:34 PM 09/17/2019
[2019-09-17] MEDS ORDERED: buPROPion 150 MG Tab.ER PO SCH (21:00)
[2019-09-18] MEDS: Ibuprofen 600 MG Tab PO PRN ×2 (01:58→11:54)
[2019-09-18] MEDS: Acetaminophen 325 MG Tab PO PRN ×2 (04:09→15:27)
[2019-09-18] MEDS ORDERED: oxyCODONE 5 MG Tab PO ONE (07:25)
--- NOTE | 2019-09-18 07:48 | PCM48HPAN ---
Post Anesthesia Note - EVALUATION WITHIN 48HRS OF ANESTHETIC Vital Signs in Normal Range: Yes Patient Participated in Evaluation: Yes Respiratory Function Stable: Yes Airway Patent: Yes Cardiovascular Function Stable: Yes Hydration Status Stable: Yes Pain Control Satisfactory: Yes Nausea and Vomiting Control Satisfactory: Yes Mental Status Recovered: Yes Vital Signs: Last Vital Signs Temp 36.6 C 09/18/19 02:04 Pulse 60 09/18/19 02:04 Resp 14 09/18/19 02:04 BP 110/84 09/18/19 02:04 Pulse Ox 95 09/18/19 02:04 - COMMENTS/OBSERVATIONS Free Text/Narrative:: no anesthesia complications noted
[2019-09-18] MEDS ORDERED: Prenatal Multivitamin with Calcium/Folic Acid/Iron Tab PO SCH (09:00)
--- NOTE | 2019-09-18 13:47 | PCM.SN ---
- Free Text/Narrative Note: Post Progress Note PPD #1 Subjective: Doing okay overall. She reports that she is having increased amounts of cramping that was not being well controlled overnight with use of Tylenol and ibuprofen. She had been using a heating pad that helps somewhat but not as much as she was hoping. Prior to my arrival this morning she was having 10/10 pain and was unable to get out of bed. She was given 1 dose of oxycodone 5 mg and she has not noticed a significant change in her pain since she has taken it although it has only been may be 10 to 15 minutes since she took the medication. Ambulating without difficulty overnight. Lochia minimal. Voiding without difficulty. Tolerating regular diet without nausea or vomiting. Breast -feeding with minimal difficulty and reports that her cramping pain is worse with breast-feeding. Objective: Vitals: Vital Signs - 24 hr 09/17/19 09/18/19 09/18/19 21:38 02:04 08:29 Temperature 36.4 C 36.6 C 36.8 C Pulse, 78 60 81 Peripheral Respiratory 14 14 14 Rate Blood Pressure 119/65 110/84 132/74 O2 Sat by Pulse 96 95 97 Oximetry Physical Exam General: Alert and oriented, mild distress Lungs: Clear to auscultation bilaterally Heart: Regular rate and rhythm Abdomen: Soft, minimal appropriate tenderness, non-distended, fundus off to the left side of the abdomen, nontender, and at the umbilicus Extremities: No edema ASSESSMENT: 33-year-old female -0-2-5 s/p normal vaginal delivery PPD #1, complicated by anxiety and depression and mild anemia in the second trimester PLAN: Doing okay at this time. We will continue to monitor her pain throughout the day. Patient was given 1 dose of oxycodone to try to get her pain under better control. Breast-feeding with minimal difficulty. Assist as needed Lochia minimal. Continue to monitor for appropriate lochia. Continue routine care Anticipate discharge home today if her pain is able to be well controlled with oral medications Bo Herrera MD 1:46 PM 09/18/2019
--- NOTE | 2019-09-18 18:13 | PCM.DCSUM1 ---
Discharge Summary - Hospital Course Free Text/Narrative:: - General Info Date of Service: 09/17/19 Mother's Due Date: 09/17/19 - Delivery Note Labor: Augmented by ARM, Augmented by Oxytocin, Induced by Oxytocin Delivery Outcome: Livebirth Infant Delivery Method: Spontaneous Vaginal Delivery-Single Presentation: Left Occiput Anterior (TARIK) Nuchal Cord: Present (single, not reduced prior to delivery) Anesthesia Type: Epidural Amniotic Fluid Description: Meconium Stained (light) Episiotomy Type: None Laceration: Vaginal (left vaginal abrasion, hemostatic, not repaired) Placenta: Intact, Spontaneous Cord: 3 Vessels Estimated Blood Loss: 200 Resuscitation Needed: Yes Topmost: Suctioned, Bulb Syringe, Stimulated, Warmed, Harrington Used, Warmer Used Provider: Bo Herrera Score 1 min: 8 Score 5 min: 9 Second Stage Interventions: Reports: Pushing Effectively, Pushing, Stirrups/Leg Supports Delivery Comments (Free Text/Narrative):: Stage I: Kenzie Reyes was admitted for elective induction of labor. On admission her cervix was dilated to 3 cm. She was GBS positive and was started on ampicillin for GBS prophylaxis. She received a total of 3 doses prior to delivery. She was started on Pitocin for induction of labor. She was given an epidural for anesthesia. She had artificial rupture of membranes with return of light meconium stained fluid. She continued to make progress throughout the induction and progressed to complete and pushing. Stage II: On 09/17/2019 she had a normal vaginal delivery of a live female at 18:08. Apgars of 8 & 9. Weight of 4030 g (8 lbs 14.2 oz). Length of 21 inches. There was a single nuchal cord that was not able to be reduced prior to delivery and was delivered through. This was reduced after delivery of the . was delivered in TARIK position. The cord was doubly clamped and cut by myself. was placed on mother's abdomen and then taken to the warmer for additional resuscitation. Stage III: She had a spontaneous delivery of an intact placenta in Madonna presentation. Three vessel cord. She was given pitocin and fundal massage. She had a left vaginal abrasion that was hemostatic and not repaired. Mom and baby were stable to recovery. EBL of 200 mL. HPI Initial Comments: - General Info Date of Service: 09/17/19 Mother's Due Date: 09/17/19 - Delivery Note Labor: Augmented by ARM, Augmented by Oxytocin, Induced by Oxytocin Delivery Outcome: Livebirth Infant Delivery Method: Spontaneous Vaginal Delivery-Single Presentation: Left Occiput Anterior (TARIK) Nuchal Cord: Present (single, not reduced prior to delivery) Anesthesia Type: Epidural Amniotic Fluid Description: Meconium Stained (light) Episiotomy Type: None Laceration: Vaginal (left vaginal abrasion, hemostatic, not repaired) Placenta: Intact, Spontaneous Cord: 3 Vessels Estimated Blood Loss: 200 Resuscitation Needed: Yes : Suctioned, Bulb Syringe, Stimulated, Warmed, Harrington Used, Warmer Used Provider: Bo Herrera Score 1 min: 8 Score 5 min: 9 Second Stage Interventions: Reports: Pushing Effectively, Pushing, Stirrups/Leg Supports Delivery Comments (Free Text/Narrative):: Stage I: Kenzie Reyes was admitted for elective induction of labor. On admission her cervix was dilated to 3 cm. She was GBS positive and was started on ampicillin for GBS prophylaxis. She received a total of 3 doses prior to delivery. She was started on Pitocin for induction of labor. She was given an epidural for anesthesia. She had artificial rupture of membranes with return of light meconium stained fluid. She continued to make progress throughout the induction and progressed to complete and pushing. Stage II: On 09/17/2019 she had a normal vaginal delivery of a live female at 18:08. Apgars of 8 & 9. Weight of 4030 g (8 lbs 14.2 oz). Length of 21 inches. There was a single nuchal cord that was not able to be reduced prior to delivery and was delivered through. This was reduced after delivery of the . Infant was delivered in TARIK position. The cord was doubly clamped and cut by myself. was placed on mother's abdomen and then taken to the warmer for additional resuscitation. Stage III: She had a spontaneous delivery of an intact placenta in Madonna presentation. Three vessel cord. She was given pitocin and fundal massage. She had a left vaginal abrasion that was hemostatic and not repaired. Mom and baby were stable to recovery. EBL of 200 mL. Brief History: - General Info. Date of Service: 09/17/19. Mother's Due Date: 09/17/19. - Delivery Note. Labor: Augmented by ARM, Augmented by Oxytocin, Induced by Oxytocin. Delivery Outcome: Livebirth. Delivery Method: Spontaneous Vaginal Delivery-Single. Presentation: Left Occiput Anterior (TARIK). Nuchal Cord: Present (single, not reduced prior to delivery). Anesthesia Type: Epidural. Amniotic Fluid Description: Meconium Stained (light) . Episiotomy Type: None. Laceration: Vaginal (left vaginal abrasion, hemostatic, not repaired). Placenta: Intact, Spontaneous. Cord: 3 Vessels. Estimated Blood Loss: 200. Resuscitation Needed: Yes. Topmost: Suctioned, Bulb Syringe, Stimulated, Warmed, Harrington Used, Warmer Used. Provider : Bo Herrera. Score 1 min: 8. Score 5 min: 9. Second Stage Interventions: Reports: Pushing Effectively, Pushing, Stirrups/Leg Supports. Delivery Comments (Free Text/Narrative):: Stage I: Kenzie Reyes was admitted for elective induction of labor. On admission her cervix was dilated to 3 cm. She was GBS positive and was started on ampicillin for GBS prophylaxis. She received a total of 3 doses prior to delivery. She was started on Pitocin for induction of labor. She was given an epidural for anesthesia. She had artificial rupture of membranes with return of light meconium stained fluid. She continued to make progress throughout the induction and progressed to complete and pushing. Stage II: On 09/17/2019 she had a normal vaginal delivery of a live female at 18:08. Apgars of 8 & 9. Weight of 4030 g (8 lbs 14.2 oz). Length of 21 inches. There was a single nuchal cord that was not able to be reduced prior to delivery and was delivered through. This was reduced after delivery of the . Infant was delivered in TARIK position. The cord was doubly clamped and cut by myself. Infant was placed on mother's abdomen and then taken to the warmer for additional resuscitation. Stage III: She had a spontaneous delivery of an intact placenta in Madonna presentation. Three vessel cord. She was given pitocin and fundal massage. She had a left vaginal abrasion that was hemostatic and not repaired. Mom and baby were stable to recovery. EBL of 200 mL. Diagnosis: Stroke: No - Discharge Data Discharge Date: 09/18/19 Discharge Disposition: Home, Self-Care 01 Condition: Good - Referral to Home Health Primary Care Physician: Bo Herrera MD - Discharge Diagnosis/Problem(s) (1) Depression SNOMED Code(s): 45144682 ICD Code: F32.9 - MAJOR DEPRESSIVE DISORDER, SINGLE EPISODE, UNSPECIFIED Status: Acute Current Visit: Yes (2) Anemia affecting SNOMED Code(s): 20908647 ICD Code: O99.019 - ANEMIA COMPLICATING , UNSPECIFIED TRIMESTER Status: Acute Current Visit: Yes (3) 40 weeks gestation of SNOMED Code(s): 82108027 ICD Code: Z3A.40 - 40 WEEKS GESTATION OF Status: Acute Current Visit: No (4) Vaginal delivery SNOMED Code(s): 710631651 ICD Code: O80 - ENCOUNTER FOR FULL-TERM UNCOMPLICATED DELIVERY Status: Acute Current Visit: Yes (5) Meconium in amniotic fluid affecting management of mother SNOMED Code(s): 77041331 ICD Code: O36.8990 - MATERNAL CARE FOR OTH PROBLEMS, UNSP TRIMESTER, UNSP Status: Acute Current Visit: Yes - Patient Summary/Data Complications: None Consults: None Hospital Course: Kenzie Reyes was admitted for elective induction of labor. On admission her cervix was dilated to 3 cm. She was GBS positive and was started on ampicillin for GBS prophylaxis. She received a total of 3 doses prior to delivery. She was given pitocin for augmentation. She was given an epidural for anesthesia. She had artificial rupture of membranes with light meconium stained fluid. She progressed to complete and began pushing. On 09/17/2019 she had a normal vaginal delivery of a live female infant at 18:08. Apgars of 8 and 9. Weight of 4030 g (8 pounds 14.2 ounces). Her course was uneventful. Her pain was moderately controlled with Tylenol and ibuprofen. She was able to get good control of her pain and cramping with oxycodone. She was discharged with Percocet for pain control. Ports she had minimal lochia. She was ambulating, tolerating a regular diet and voiding normally. She was breast-feeding with minimal difficulty. She was afebrile and her hematocrit was 36.5 on admission. She desired to be discharged home in the evening of PPD #1. Her blood type is O+. - Patient Instructions Diet: Regular Diet as Tolerated Activity: Apply Ice, As Tolerated Activity, Other: Nothing in the vagina for 6 weeks Driving: Do Not Drive (While taking narcotic medications are having significant pain.) Showering/Bathing: May Shower Notify Provider of: Fever, Increased Pain, Swelling and Redness, Drainage, Nausea and/or Vomiting Other/Special Instructions: Please contact your physician's office if you have heavy vaginal bleeding enough to soak a pad in less than an hour for several hours. Monitor for any signs of an infection in the breasts with severe pain or redness of the breast. - Discharge Plan *PRESCRIPTION DRUG MONITORING PROGRAM REVIEWED*: Yes *COPY OF PRESCRIPTION DRUG MONITORING REPORT IN PATIENT LAURA: No (Only prescription was from 2 years ago with previous delivery.) Prescriptions/Med Rec: Acetaminophen/oxyCODONE [Percocet 325-5 MG] 1 - 2 each PO Q6H PRN #15 tab PRN Reason: Pain Home Medications: Home Meds Vit 10/Iron/Folic/Dha [Vitafol-OB + DHA] 1 each PO DAILY 11/04/17 [ History] Magnesium Amino Acid Chelate [Magnesium] 0 mg PO DAILY 07/16/19 [History] Ferrous Sulfate [Iron] 325 mg PO DAILY 09/17/19 [History] buPROPion HCl [Bupropion Xl] 150 mg PO BEDTIME 09/17/19 [History] Acetaminophen [Tylenol] 650 mg PO Q6H PRN tablet 09/18/19 [Rx] Acetaminophen/oxyCODONE [Percocet 325-5 MG] 1 - 2 each PO Q6H PRN #15 tab [Rx] Benzocaine/Menthol [Dermoplast Pain Relief [place]] 1 spray TOP ASDIRECTED PRN canister 09/18/19 [Rx] Docusate Sodium [Colace] 100 mg PO BID PRN cap 09/18/19 [Rx] Hydrocortisone Acetate [Anucort-HC] 25 mg RECTAL BID PRN supp 09/18/19 [Rx] Ibuprofen [Motrin] 600 mg PO Q6H PRN tablet 09/18/19 [Rx] witch Che [Tucks] 1 pad TOP ASDIRECTED PRN pad 09/18/19 [Rx] Patient Handouts: Care of a Perineal Tear, Care After Vaginal Delivery Referrals: Bo Herrera MD [Primary Care Provider] - (Follow-up in 2 weeks for routine visit or earlier as needed.) - Discharge Summary/Plan Comment DC Time >30 min.: No - Patient Data Vitals - Most Recent: Last Vital Signs Temp 36.8 C 09/18/19 14:22 Pulse 74 09/18/19 14:22 Resp 14 09/18/19 14:22 BP 115/62 09/18/19 14:22 Pulse Ox 97 09/18/19 14:22 Weight - Most Recent: 96.887 kg I&O - Last 24 hours: Intake & Output 09/18/19 09/18/19 09/18/19 06:59 14:59 22:59 Intake Total 440 Balance 440 Med Orders - Current: Current Medications Acetaminophen (Tylenol) 650 mg PO Q6H PRN PRN Reason: mild pain or fever Last Admin: 09/18/19 15:27 Dose: 650 mg Benzocaine/Menthol (Dermoplast Pain Relief [place]) 0 gm TOP ASDIRECTED PRN PRN Reason: Perineal Comfort Measure Last Admin: 09/17/19 20:22 Dose: 1 can Bupropion HCl (Wellbutrin Xl) 150 mg PO BEDTIME ARLETTE Last Admin: 09/17/19 21:47 Dose: 150 mg Docusate Sodium (Colace) 100 mg PO BID PRN PRN Reason: Constipation Hydrocortisone Acetate (Anucort-Hc) 25 mg RECTAL BID PRN PRN Reason: Hemorrhoid pain Oxytocin/Lactated Ringer's (Pitocin In Lr 10 Units/1,000 Ml) 10 unit in 1,000 mls @ 100 mls/hr IV TITRATE ARLETTE; Protocol Ibuprofen (Motrin) 600 mg PO Q6H PRN PRN Reason: Mild pain or fever Last Admin: 09/18/19 11:54 Dose: 600 mg Magnesium Hydroxide (Milk Of Magnesia) 30 ml PO BEDTIME PRN PRN Reason: Constipation Prenat Multivit/High Climber/Iron/Folic Ac ( Plus Iron) 1 each PO DAILY ARLETTE Last Admin: 09/18/19 10:58 Dose: 1 each Witch Che (Tucks) 1 pad TOP ASDIRECTED PRN PRN Reason: Perineal Comfort Measure Last Admin: 09/17/19 20:22 Dose: 1 tub Discontinued Medications Ephedrine Sulfate (Ephedrine Sulfate) 5 mg IVPUSH ASDIRECTED PRN PRN Reason: Hypotension Fentanyl (Sublimaze) 100 mcg EPIDUR Q3H PRN PRN Reason: Pain Last Admin: 09/17/19 12:36 Dose: 100 mcg Fentanyl/Bupivacaine HCl (Fentanyl/Bupivacaine/Ns 2 Mcg-0.125% 100 Ml) 100 ml EPIDUR ASDIRECTED ARLETTE Last Admin: 09/17/19 12:37 Dose: 100 ml Ampicillin Sodium 2 gm/ Sodium (Chloride) 100 mls @ 200 mls/hr IV ONETIME ONE Stop: 09/17/19 08:29 Last Admin: 09/17/19 08:12 Dose: 200 mls/hr Ampicillin Sodium 1 gm/ Sodium (Chloride) 100 mls @ 200 mls/hr IV Q4H ARLETTE Last Admin: 09/17/19 17:35 Dose: 200 mls/hr Lactated Ringer's (Ringers, Lactated) 1,000 mls @ 100 mls/hr IV ASDIRECTED ARLETTE Last Admin: 09/17/19 17:40 Dose: 100 mls/hr Oxytocin/Lactated Ringer's (Pitocin In Lr 10 Units/1,000 Ml) 10 unit in 1,000 mls @ 12 mls/hr IV TITRATE ARLETTE; Protocol Last Titration: 09/17/19 15:55 Dose: 12 munits/min, 72 mls/hr Oxytocin/Lactated Ringer's (Pitocin In Lr 10 Units/1,000 Ml) 10 unit in 1,000 mls @ 100 mls/hr IV .CONTINUOUS ARLETTE; Protocol Lidocaine/Epinephrine (Xylocaine-Mpf 1.5% W/Epinephrine 1:200,000) 5 ml .ROUTE .STK-MED ONE Stop: 09/17/19 00:01 Nalbuphine HCl (Nubain) 10 mg IVPUSH Q2H PRN PRN Reason: Pain Ondansetron HCl (Zofran) 4 mg IVPUSH ONETIME PRN PRN Reason: Nausea/Vomiting Oxycodone HCl (Oxycodone) 5 mg PO ONETIME ONE Stop: 09/18/19 07:26 Last Admin: 09/18/19 07:35 Dose: 5 mg Sodium Chloride (Saline Flush) 10 ml FLUSH ASDIRECTED PRN PRN Reason: Keep Vein Open
== END 2019-09-18 19:13 | disposition home or self-care (01) | DRG 807 ==
LOC: JD.OB 07:11 → OBSVTOIN 18:08 → JD.OB 18:09
PROVIDERS: ADMIT Obstetrics & Gynecology; ATTEND Obstetrics & Gynecology
PROC: 10E0XZZ Delivery of Products of Conception, External Approach (ICD-10-PCS; principal; 2019-09-17)
PROC: 10907ZC Drainage of Amniotic Fluid, Therapeutic from Products of Conception, Via Natural or Artificial Opening (ICD-10-PCS; 2019-09-17)
PROC: 3E0R3BZ Introduction of Anesthetic Agent into Spinal Canal, Percutaneous Approach (ICD-10-PCS; 2019-09-17)
PROC: 00HU33Z Insertion of Infusion Device into Spinal Canal, Percutaneous Approach (ICD-10-PCS; 2019-09-17)
DX: O48.0 Post-term pregnancy (principal); Z37.0 Single live birth; Z3A.40 40 weeks gestation of pregnancy; O99.344 Other mental disorders complicating childbirth; F32.9 Major depressive disorder, single episode, unspecified; F41.9 Anxiety disorder, unspecified; O99.02 Anemia complicating childbirth; D64.9 Anemia, unspecified; O77.0 Labor and delivery complicated by meconium in amniotic fluid
CPT/HCPCS: 01967; 36415; 51702; 59025; 59409; 85025; 86592; A9270-GY; J0290; J2590; J3010; J7050; J7120

== ENCOUNTER 2019-10-31 14:11 | Emergency (ER) | payer OTHER ==
--- NOTE | 2019-10-31 16:08 | CR ---
Chest: 2 views of the chest were obtained. Comparison: No previous chest imaging. Heart size and mediastinum are within normal limits. Scoliosis is noted within the spine. Bony structures are otherwise unremarkable. Lungs show no acute parenchymal change. Impression: 1. Mild scoliosis. 2. Nothing acute is appreciated. Diagnostic code #2 This report was dictated in MDT
--- NOTE | 2019-10-31 16:38 | US ---
Right lower extremity deep venous ultrasound: Duplex and color Doppler evaluation was obtained of the right common femoral, proximal greater saphenous, superficial femoral, popliteal, posterior tibial and peroneal veins. Left common femoral vein was also evaluated. Findings: Normal phasic flow, augmentation and compression is seen. Impression: 1. No evidence of deep venous thrombosis within the right lower extremity or within the left common femoral vein. Diagnostic code #1 This report was dictated in MDT
--- NOTE | 2019-10-31 17:26 | EDM.PDOC ---
ED HPI GENERAL MEDICAL PROBLEM - General Chief Complaint: General Stated Complaint: TINGLING IN RT ARM AND PAIN IN RT LEG Time Seen by Provider: 10/31/19 14:29 Source of Information: Reports: Patient History Limitations: Reports: No Limitations - History of Present Illness INITIAL COMMENTS - FREE TEXT/NARRATIVE: The patient presents with right chest pain. This started today. She also has some tingling in her right arm. She has some edema and pain to her right inner ankle. She denies any injury. She has some shortness of breath at times with exertion. She has no fever, chills, cough, congestion, runny nose, abdominal pain, nausea or vomiting. She has no history of DVT or PE but her mother and grandfather have a history of DVT. She gave 6 weeks ago. She does not smoke and she has no history of health problems. Onset: Gradual Duration: Day(s): Location: Reports: Chest Quality: Reports: Sharp Severity: Moderate Improves with: Reports: None Worsens with: Reports: None Associated Symptoms: Reports: Chest Pain, Shortness of Breath. Denies: Cough, Fever/Chills, Headaches, Nausea/Vomiting Right Leg Pain Score (Numeric/FACES): 4 - Related Data Allergies Allergy/AdvReac Type Severity Reaction Status Date / Time No Known Allergies Allergy Verified 10/31/19 14:26 Home Meds: Home Meds Vit 10/Iron/Folic/Dha [Vitafol-OB + DHA] 1 each PO DAILY 11/04/17 [ History] Magnesium Amino Acid Chelate [Magnesium] 0 mg PO DAILY 07/16/19 [History] Ferrous Sulfate [Iron] 325 mg PO DAILY 09/17/19 [History] buPROPion HCL [Bupropion Xl] 150 mg PO BEDTIME 09/17/19 [History] Acetaminophen [Tylenol] 650 mg PO Q6H PRN tablet 09/18/19 [Rx] Acetaminophen/oxyCODONE [Percocet 325-5 MG] 1 - 2 each PO Q6H PRN #15 tab [Rx] Benzocaine/Menthol [Dermoplast Pain Relief [place]] 1 spray TOP ASDIRECTED PRN canister 09/18/19 [Rx] Docusate Sodium [Colace] 100 mg PO BID PRN cap 09/18/19 [Rx] Hydrocortisone Acetate [Anucort-HC] 25 mg RECTAL BID PRN supp 09/18/19 [Rx] Ibuprofen [Motrin] 600 mg PO Q6H PRN tablet 09/18/19 [Rx] skylar [place] [Tucks] 1 pad TOP ASDIRECTED PRN pad 09/18/19 [Rx] Past Medical History Cardiovascular History: Reports: None Other Cardiovascular History: palpitations d/t low magnesium, is now on oral magnesium Respiratory History: Reports: None Gastrointestinal History: Reports: None Genitourinary History: Reports: None 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: Musculoskeletal History: Reports: None Neurological History: Reports: None Psychiatric History: Reports: Anxiety, Depression Other Psychiatric History: high EPDS score, thoughts of self harm, sent to ER for visit 07/16/2019-started on wellbutrin Endocrine/Metabolic History: Reports: None Hematologic History: Reports: None Immunologic History: Reports: None Oncologic (Cancer) History: Reports: None Dermatologic History: Reports: None - Infectious Disease History Infectious Disease History: Reports: None - Past Surgical History HEENT Surgical History: Reports: Oral Surgery Social & Family History - Family History Family Medical History: Noncontributory - Tobacco Use Smoking Status *Q: Never Smoker Second Hand Smoke Exposure: No - Caffeine Use Caffeine Use: Reports: None - Recreational Drug Use Recreational Drug Use: No - Living Situation & Occupation Living situation: Reports: , with Spouse, with Family ED ROS GENERAL - Review of Systems Review Of Systems: See Below Constitutional: Reports: No Symptoms HEENT: Reports: No Symptoms Respiratory: Reports: Shortness of Breath Cardiovascular: Reports: Chest Pain Endocrine: Reports: No Symptoms GI/Abdominal: Reports: No Symptoms : Reports: No Symptoms Musculoskeletal: Reports: No Symptoms Skin: Reports: No Symptoms ED EXAM, GENERAL - Physical Exam Exam: See Below Exam Limited By: No Limitations General Appearance: Alert, No Apparent Distress Ears: Normal External Exam Nose: Normal Inspection Head: Atraumatic, Normocephalic Neck: Normal Inspection Respiratory/Chest: No Respiratory Distress, Lungs Clear, Normal Breath Sounds Cardiovascular: Regular Rate, Rhythm, No Edema, No Murmur GI/Abdominal: Soft, Non-Tender, No Organomegaly, No Mass Extremities: Other (Mild edema with pain upon palpation to the right inner upper ankle) Neurological: Alert, Oriented, No Motor/Sensory Deficits EKG INTERPRETATION EKG Date: 10/31/19 Time: 16:52 Rhythm: Other (sinus bradycardia) Rate (Beats/Min): 54 [place]: Normal P-Wave: Present QRS: Normal ST-T: Normal QT: Normal Course - Vital Signs Last Recorded V/S: Last Vital Signs Temp 97.3 F 10/31/19 14:23 Pulse 62 10/31/19 14:23 Resp 16 10/31/19 14:23 BP 96/71 10/31/19 14:23 Pulse Ox 98 10/31/19 14:23 - Orders/Labs/Meds Orders: Active Orders 24 hr Category Date Time Status Cardiac Monitoring [RC] . DIRECTED Care 10/31/19 14:47 Active EKG Documentation Completion [RC] STAT Care 10/31/19 14:47 Active Labs: Laboratory Tests 10/31/19 10/31/19 10/31/19 Range/Units 14:55 14:55 14:55 WBC 4.76 (3.98-10.04) K/mm3 RBC 4.81 (3.98-5.22) M/mm3 Hgb 12.7 D (11.2-15.7) gm/dl Hct 40.0 (34.1-44.9) % MCV 83.2 (79.4-94.8) fl MCH 26.4 (25.6-32.2) pg MCHC 31.8 L (32.2-35.5) g/dl RDW Std Deviation 47.7 H (36.4-46.3) fL Plt Count 220 (182-369) K/mm3 MPV 9.4 (9.4-12.3) fl Neut % (Auto) 56.7 (34.0-71.1) % Lymph % (Auto) 31.5 (19.3-51.7) % [place] % (Auto) 5.9 (4.7-12.5) % Eos % (Auto) 5.3 (0.7-5.8) Baso % (Auto) 0.4 (0.1-1.2) % Neut # (Auto) 2.70 (1.56-6.13) K/mm3 Lymph # (Auto) 1.50 (1.18-3.74) K/mm3 [place] # (Auto) 0.28 (0.24-0.36) K/mm3 Eos # (Auto) 0.25 (0.04-0.36) K/mm3 Baso # (Auto) 0.02 (0.01-0.08) K/mm3 D-Dimer, Quantitative 0.38 (0.19-0.50) mg/L Sodium 141 (136-145) mEq/L Potassium 4.1 (3.5-5.1) mEq/L Chloride 107 (98-107) mEq/L Carbon Dioxide 26 (21-32) mEq/L Anion Gap 12.1 (5-15) BUN 15 (7-18) mg/dL Creatinine 0.7 (0.55-1.02) mg/dL Est Cr Clr Drug Dosing 99.63 mL/min Estimated GFR (MDRD) > 60 (>60) mL/min BUN/Creatinine Ratio 21.4 H (14-18) Glucose 88 (74-106) mg/dL Calcium 9.0 (8.5-10.1) mg/dL Magnesium (1.8-2.4) mg/dl Total Bilirubin 0.5 (0.2-1.0) mg/dL AST 24 (15-37) U/L ALT 48 (14-59) U/L Alkaline Phosphatase 104 (46-116) U/L Troponin I < 0.017 (0.00-0.056) ng/mL Total Protein 6.6 (6.4-8.2) g/dl Albumin 3.3 L (3.4-5.0) g/dl Globulin 3.3 gm/dL Albumin/Globulin Ratio 1.0 (1-2) 05/20/20 Range/Units 14:55 WBC (3.98-10.04) K/mm3 RBC (3.98-5.22) M/mm3 Hgb (11.2-15.7) gm/dl Hct (34.1-44.9) % MCV (79.4-94.8) fl MCH (25.6-32.2) pg MCHC (32.2-35.5) g/dl RDW Std Deviation (36.4-46.3) fL Plt Count (182-369) K/mm3 MPV (9.4-12.3) fl Neut % (Auto) (34.0-71.1) % Lymph % (Auto) (19.3-51.7) % [place] % (Auto) (4.7-12.5) % Eos % (Auto) (0.7-5.8) Baso % (Auto) (0.1-1.2) % Neut # (Auto) (1.56-6.13) K/mm3 Lymph # (Auto) (1.18-3.74) K/mm3 [place] # (Auto) (0.24-0.36) K/mm3 Eos # (Auto) (0.04-0.36) K/mm3 Baso # (Auto) (0.01-0.08) K/mm3 D-Dimer, Quantitative (0.19-0.50) mg/L Sodium (136-145) mEq/L Potassium (3.5-5.1) mEq/L Chloride (98-107) mEq/L Carbon Dioxide (21-32) mEq/L Anion Gap (5-15) BUN (7-18) mg/dL Creatinine (0.55-1.02) mg/dL Est Cr Clr Drug Dosing mL/min Estimated GFR (MDRD) (>60) mL/min BUN/Creatinine Ratio (14-18) Glucose (74-106) mg/dL Calcium (8.5-10.1) mg/dL Magnesium 2.2 (1.8-2.4) mg/dl Total Bilirubin (0.2-1.0) mg/dL AST (15-37) U/L ALT (14-59) U/L Alkaline Phosphatase (46-116) U/L Troponin I (0.00-0.056) ng/mL Total Protein (6.4-8.2) g/dl Albumin (3.4-5.0) g/dl Globulin gm/dL Albumin/Globulin Ratio (1-2) - Re-Assessments/Exams Free Text/Narrative Re-Assessment/Exam: 10/31/19 17:25 I ordered an EKG, CXR, labs and an US of her right leg. Her EKG shows a sinus bradycardia with no acute changes. Her CXR shows nothing acute. Her US shows no DVT. Her CBC and CMP look good. Her D-dimer and troponin are negative. I will discharge her home. Departure - Departure Time of Disposition: 17:30 Disposition: Home, Self-Care 01 Condition: Good Clinical Impression: Atypical chest pain, Right leg pain - Discharge Information *PRESCRIPTION DRUG MONITORING PROGRAM REVIEWED*: Not Applicable *COPY OF PRESCRIPTION DRUG MONITORING REPORT IN PATIENT LAURA: Not Applicable Referrals: Harmony Nicholson MD [Primary Care Provider] - 1 Week Additional Instructions: Drink plenty of fluids. Take tylenol or motrin for pain. Please return if you are worse. Sepsis Event Note - Evaluation Sepsis Screening Result: No Definite Risk - Focused Exam Vital Signs: Vital Signs Temp Pulse Resp BP Pulse Ox 10/31/19 14:23 97.3 F 62 16 96/71 98 Date Exam was Performed: 10/31/19 Time Exam was Performed: 17:21 - My Orders Last 24 Hours: My Active Orders 10/31/19 14:47 Cardiac Monitoring [RC] . DIRECTED EKG Documentation Completion [RC] STAT - Assessment/Plan Last 24 Hours: My Active Orders 10/31/19 14:47 Cardiac Monitoring [RC] . DIRECTED EKG Documentation Completion [RC] STAT
== END 2019-10-31 18:00 | disposition home or self-care (01) ==
LOC: JD.ED 14:11
DX: R07.89 Other chest pain (principal); M79.604 Pain in right leg; F41.9 Anxiety disorder, unspecified; F32.9 Major depressive disorder, single episode, unspecified; Z79.899 Other long term (current) drug therapy
CPT/HCPCS: 36415; 71046; 71046-26; 80053; 83735; 84484; 85025; 85379; 93005; 93971-26-RT; 93971-RT; 99285-25

== ENCOUNTER 2021-09-05 13:03 | Inpatient (IN) | payer OTHER ==
[2021-09-05] MEDS ORDERED: Sodium Chloride 0.9% 10 ML Syringe FLUSH PRN (13:39)
[2021-09-05] MEDS ORDERED: Acetaminophen 325 MG Tab PO PRN (13:39)
[2021-09-05] MEDS ORDERED: Nalbuphine 10 MG/1 ML Vial IVPUSH PRN (13:39)
[2021-09-05] MEDS ORDERED: Oxytocin/Lactated Ringers 10 UNIT/1,000 ML BAG IV SCH ×2 (13:45)
[2021-09-05] MEDS ORDERED: Ampicillin 2 GM in Sodium Chloride 0.9% 100 ML IV ONE (13:54)
[2021-09-05] MEDS: Lactated Ringers 1,000 ML IV SCH ×4 (14:35→22:06)
[2021-09-05] MEDS ORDERED: Bupivacaine 0.25% 10 ML SDV ONE (16:00)
[2021-09-05] MEDS: Ampicillin 1 GM in Sodium Chloride 0.9% 100 ML IV SCH ×2 (18:13→22:04)
[2021-09-05] MEDS ORDERED: ePHEDrine 50 MG/ML SDV IVPUSH PRN (18:22)
[2021-09-05] MEDS ORDERED: Bupivacaine/fentaNYL/NS 100 ML Bag EPIDUR PRN (18:22)
[2021-09-05] MEDS ORDERED: fentaNYL 100 MCG/2 ML SDV EPIDUR PRN (18:22)
[2021-09-05] MEDS ORDERED: diphenhydrAMINE 50 MG/ML SDV IVPUSH PRN (18:22)
[2021-09-05] MEDS ORDERED: Sodium Chloride 0.9% 10 ML Syringe FLUSH SCH (21:00)
[2021-09-06] MEDS ORDERED: Docusate Sodium 100 MG Cap PO PRN (00:26)
[2021-09-06] MEDS ORDERED: Magnesium Hydroxide 400 MG/5 ML Susp 30 ML Cup PO PRN (00:26)
[2021-09-06] MEDS ORDERED: Benzocaine/Menthol 20%-0.5% Spray 78 GM Cannister TOP PRN (00:26)
[2021-09-06] MEDS ORDERED: Oxytocin/Lactated Ringers 10 UNIT/1,000 ML BAG IV SCH (00:26)
[2021-09-06] MEDS ORDERED: Witch Hazel Medicated Pads 40/Jar TOP PRN (00:26)
[2021-09-06] MEDS ORDERED: Hydrocortisone Acetate 25 MG Supp RECTAL PRN (00:26)
[2021-09-06] MEDS: Ibuprofen 600 MG Tab PO PRN ×4 (00:54→18:00)
[2021-09-06] MEDS: Acetaminophen 325 MG Tab PO PRN ×3 (06:19→21:42)
[2021-09-06] MEDS: buPROPion 150 MG Tab.ER PO SCH (08:22)
[2021-09-06] MEDS: Prenatal Multivitamin with Calcium/Folic Acid/Iron Tab PO SCH (08:22)
[2021-09-07] MEDS: Ibuprofen 600 MG Tab PO PRN ×2 (00:10→06:22)
[2021-09-07] MEDS: Acetaminophen 325 MG Tab PO PRN (03:27)
[2021-09-07] MEDS: buPROPion 150 MG Tab.ER PO SCH (09:51)
[2021-09-07] MEDS: Prenatal Multivitamin with Calcium/Folic Acid/Iron Tab PO SCH (09:51)
== END 2021-09-07 10:04 | disposition home or self-care (01) | DRG 807 ==
LOC: JD.OB 13:03 → OBSVTOIN 23:40 → JD.OB 23:41
PROVIDERS: ADMIT Obstetrics & Gynecology; ATTEND Obstetrics & Gynecology
PROC: 10E0XZZ Delivery of Products of Conception, External Approach (ICD-10-PCS; principal; 2021-09-05)
PROC: 3E033VJ Introduction of Other Hormone into Peripheral Vein, Percutaneous Approach (ICD-10-PCS; 2021-09-05)
PROC: 3E0R3BZ Introduction of Anesthetic Agent into Spinal Canal, Percutaneous Approach (ICD-10-PCS; 2021-09-05)
PROC: 10907ZC Drainage of Amniotic Fluid, Therapeutic from Products of Conception, Via Natural or Artificial Opening (ICD-10-PCS; 2021-09-05)
DX: O69.81X0 Labor and delivery complicated by cord around neck, without compression, not applicable or unspecified (principal); Z37.0 Single live birth; O70.1 Second degree perineal laceration during delivery; Z3A.39 39 weeks gestation of pregnancy; O99.824 Streptococcus B carrier state complicating childbirth
CPT/HCPCS: 36415; 51702; 59025; 59409; 85025; 86592; A9270-GY; J0290; J2590; J3010; J3490; J7120

== ENCOUNTER 2024-04-01 14:59 | Emergency (ER) | payer BC, OTHER ==
[2024-04-01 15:38] LABS: BASOPHILS PERCENT AUTO 0.4 % (0.0-1.0); EOSINOPHILS ABSOLUTE AUTO 0.1 K/mm3 (0.0-0.4); EOSINOPHILS PERCENT AUTO 1.4 % (0.0-6.0); HEMATOCRIT 42.9 % (37.0-47.0); HEMOGLOBIN 14.3 gm/dl (12.0-16.0); IMMATURE GRAN ABSOLUTE AUTO 0.03 K/mm3 (0.00-0.05); IMMATURE GRAN PERCENT AUTO 0.4 % (0.0-0.4); LYMPHOCYTES ABSOLUTE AUTO 1.9 K/mm3 (1.0-4.8); LYMPHOCYTES PERCENT AUTO 27.2 % (24.0-44.0); MEAN CORPUSCULAR HEMOGLOBIN 28.3 pg (28.0-32.0); MEAN CORPUSCULAR HGB CONC 33.3 g/dl (32.0-36.0); MEAN PLATELET VOLUME 8.9 fl (9.4-12.3); MONOCYTES ABSOLUTE AUTO 0.3 K/mm3 (0.0-0.8); MONOCYTES PERCENT AUTO 4.6 % (0.0-8.0); NEUTROPHILS ABSOLUTE AUTO 4.6 K/mm3 (1.8-7.7); PLATELET COUNT,PLT 236 K/mm3 (150-400); RED BLOOD CELL COUNT 5.05 M/mm3 (4.10-5.30); WHITE BLOOD CELL COUNT,WBC 6.96 K/mm3 (3.9-11.3)
[2024-04-01 15:51] LABS: A/G RATIO 1.2 (1-2); ALBUMIN 3.8 g/dl (3.4-5.0); ANION GAP 11.6 (5-15); BILIRUBIN TOTAL 0.9 mg/dL (0.2-1.0); CALCIUM 9.3 mg/dL (8.5-10.1); CREATININE 0.8 mg/dL (0.55-1.02); EST CRCL DRUG DOSING (CG) 83.14 mL/min; MAGNESIUM 1.9 mg/dL (1.8-2.4); POTASSIUM,K 3.6 mEq/L (3.5-5.1); PROTEIN TOTAL,TP 7.1 g/dl (6.4-8.2)
[2024-04-01 16:20] LABS: CORONAVIRUS COVID-19 NAA NEGATIVE (NEGATIVE); INFLUENZA A NAA NEGATIVE (NEGATIVE); RESPIRATORY SYNCYTIAL VIR NAA NEGATIVE (NEGATIVE)
== END 2024-04-01 17:30 | disposition home or self-care (01) ==
LOC: JD.ED 14:59
DX: R07.89 Other chest pain (principal); Z79.899 Other long term (current) drug therapy
CPT/HCPCS: 0241U; 36415; 71045; 80053; 83735; 84484; 85025; 93005; 99285